=== PATIENT | female | born 1940 | race Caucasian/White ===

== ENCOUNTER → 2017-02-26 | Outpatient (CLI) | payer OTHER ==
[~2017-02-26] MED LIST: ASPI81TA28 PO; ATOR-24 PO; CHOL1000 PO; CLOP1TAB15 PO; CZR50 PO; ERGO500037 PO; HYDR-5688 PO; INSU1INJ33 SQ; LEVO150T9 PO; MAGN400T6 PO; METFTAB PO; METO-217 PO; NLV/20 PO; NVLGI/PEN SQ; OMEG10007 PO; POLY335019 PO; PRLSR20 PO; VENL75CA73 PO
--- NOTE | 2017-02-27 09:07 | MAMMOGRAPHY REPORT ---
BILATERAL DIGITAL SCREENING MAMMOGRAM TOMOSYNTHESIS WITH CAD: 02/26/2017 CLINICAL HISTORY: Asymptomatic. Personal history of breast cancer. TECHNIQUE: Breast tomosynthesis in addition to standard 2D mammography was performed. Current study was also evaluated with a Computer Aided Detection (CAD) system. COMPARISON: Comparison is made to exams dated: 02/26/2016 mammogram, 01/25/2015 mammogram, 07/18/2014 mammogram, 01/12/2014 mammogram, 07/13/2013 mammogram, and 01/14/2013 ultrasound - [facility] enter. BREAST COMPOSITION: There are scattered areas of fibroglandular density in both breasts. FINDINGS: No suspicious masses, calcifications, or areas of architectural distortion are noted in ei ther breast. There has been no significant interval change compared to prior exams. There are stable postsurgical changes in the left breast from prior lumpectomy. A linear scar marker denotes a scar on the left anterior breast. Bilateral benign-appearing calcifications are not significantly changed . IMPRESSION: ACR BI-RADS CATEGORY 2: BENIGN There is no mammographic evidence of malignancy. A 1 year screening mammogram is recommended. The pa tient will receive written notification of the results. Approximately 10% of breast cancers are not detected with mammography. A negative mammographic report should not delay biopsy if a clinically suggestive mass is present. Irma Jones M.D. /:02/26/2017 16:16:44 Faith Healer: Vesta DARDEN)([place]), [facility] letter sent: Normal 1/2 BI-RADS Code: ACR BI-RADS Category 2: Benign
== END | disposition home or self-care (01) ==
LOC: C.MAMM 09:45
PROVIDERS: ATTEND Surgery
DX: Z12.31 Encounter for screening mammogram for malignant neoplasm of breast (principal); Z85.3 Personal history of malignant neoplasm of breast; Z08 Encounter for follow-up examination after completed treatment for malignant neoplasm

== ENCOUNTER 2022-02-20 14:35 | Observation (INO) ==
[2022-02-20 15:44] LABS: Hematocrit (blood only) 29.9 % (37-47); Hemoglobin 9.4 g/dL (12.0-16.0); Mean Corpuscular Hemoglobin 25.9 pg (25-34); Mean Corpuscular Hgb Conc 31.4 g/dL (32-36); Mean Corpuscular Volume 82.4 fL (80-100); Mean Platelet Volume 9.2 fL (7.4-10.4); Platelet Count 245 K/uL (130-400); RDW Coefficient of Variation 15.2 % (11.5-14.5); RDW Standard Deviation 45.8 fL (36.4-46.3); Red Blood Count 3.63 M/uL (4.2-5.4); White Blood Count 8.92 K/uL (4.8-10.8)
[2022-02-20] MEDS ORDERED: CEFEPIME 2,000 MG/20 ML VIAL IV STA (16:01)
[2022-02-20] MEDS ORDERED: SODIUM CHLORIDE 0.9% 1000ML 1,000 ML IV ONE (16:01)
--- NOTE | 2022-02-20 16:04 | Emergency Department Note ---
Impression & Plan Abdominal pain, Urinary tract infection, Anemia ED Provider Note NAME: VIBHA CEDENO AGE: 81 SEX: F : 1940 ARRIVES VIA: Walk-In INFORMANT: Patient ED PROVIDER(S): Antony Dickinson DO CHIEF COMPLAINT: fever HPI: Patient is a 81-year-old female who presents the ER for dysuria and urgency which has been present since about the 12th of this month. She gave a urine sample and the culture grew out gram-negative non-Lactose fermenting bacteria. It is fairly resistant per the daughter who works in [employer] at [employer] [facility] [employer] where it is running. Sensitivities are not quite resulted as they had to be rerun due to resistance. Patient denies any headache or change in vision. No chest pain or shortness of breath. No nausea, vomiting, or diarrhea. No other exacerbating or remitting factors. Admits to chronic back pain which has been unchanged. She does also admit to lower suprapubic abdominal pain. ROS: See above HPI for pertinent positives & negatives. A total of 10 systems reviewed and were otherwise negative. PAST MEDICAL HISTORY:See Below PAST SURGICAL HISTORY:See Below FAMILY HISTORY:See Below SOCIAL HISTORY:See Below HOME MEDICATIONS:See Below ALLERGIES:See Below VITALS:See Below PHYSICAL EXAMINATION: GENERAL: Sitting up in bed, alert, well appearing, well nourished, no distress, non-toxic EYE EXAM: normal conjunctiva. OROPHARYNX: no exudate, no erythema, lips, buccal mucosa, and tongue normal and mucous membranes are moist NECK: supple, no nuchal rigidity, no adenopathy, non-tender LUNGS: Clear to auscultation. Normal chest wall mechanics HEART: no murmurs, S1 normal and S2 normal ABDOMEN: abdomen soft, non-tender, normo-active bowel sounds, no masses, no rebound or guarding. UPPER EXTREMITIES: upper extremities are grossly normal. LOWER EXTREMITIES: No pitting edema. NEURO EXAM: Normal sensorium, cranial nerves II-XII grossly intact, normal speech, no gross weakness of arms, no gross weakness of legs. MEDICAL DECISION MAKING: Patient is a 81-year-old female who presents ER for above-stated complaint. IV was established blood was obtained. Labs show no significant leukocytosis. Mild anemia at 9.4. BMP with mild hyponatremia 132. LFTs bilirubin was unremarkable. Patient was initially given IV cefepime and IV fluids. Protocol orders were placed as described previously in volume. I did add on blood cultures and lactates which resulted later. I ordered her cefepime and IV fluids. Requested medicine I ordered her meropenem later although cultures would support cefepime at this time. Patient and family were updated at bedside. She was admitted to the hospitalist for further work-up. She was not febrile or tachycardic while in the ER. There was no leukocytosis. Triage Nursing notes reviewed. Limited review of prior medical records performed Vital Signs: reviewed and remarkable for HTN and tachy Differential diagnosis: Differential diagnoses includes but is not limited to gastritis, peptic ulcer disease, GERD, gallbladder disease, pancreatitis, small bowel obstruction, acute coronary syndrome, pericarditis, ischemic bowel, irritable bowel disease, irritable bowel syndrome, appendicitis, diverticulitis, malignancy, hernia, urinary tract infection, torsion, [/ectopic (if female)], per foration, trauma, infectious. ER treatment provided: See below Diagnostics interpreted by me: Cardiac Monitoring: An order was placed for continuous cardiac monitoring. The monitor shows a rate of 88 with sinus rhythm. Laboratory studies: As stated above and show below. Imaging studies: CT abdomen pelvis is unremarkable exception of inflammation around the bladder Consultation(s): The hospitalist for further evaluation Procedures: none Critical Care: None Past Med/Surg History Medical History (Updated 02/20/22 @ 19:14 by Antony Dickinson DO) Anemia Arrhythmia states my heart skip a beat ocassionally Chronic back pain Diabetes mellitus, type 2 GERD (gastroesophageal reflux disease) Hiatal hernia Hx of breast cancer 2012 34 session of radiation Hyperlipidemia Hypertension Hypothyroidism Osteoarthritis Pancreatic cyst monitoring Surgical History History of cardiac cath ~2016/2017 History of carpal tunnel release right History of cataract surgery right and left History of colonoscopy History of ERCP History of esophagogastroduodenoscopy (EGD) History of heart artery stent one stent 2016 or 2018 - [facility] Carmen follows with dr Cee in [place] History of open reduction and internal fixation (ORIF) procedure right leg ORIF History of total hysterectomy with bilateral salpingo-oophorectomy (BSO) Hx laparoscopic cholecystectomy Hx of arthroscopy of shoulder left Hx of hernia repair umbilical S/P epidural steroid injection Family History Mother Diabetes mellitus, type 2 Social History Smoking Status: Never smoker Second Hand Exposure: No; Hx Alcohol Use: No Hx Substance Use: No Preferred Language: Botswanan Communication Ability: Effective It Integration Architect Required: No Beliefs That Will Affect Care: None Current Living Situation: Spouse Feels Safe at Home: Yes Assistive Devices: Denture - Upper and Denture - Lower Allergies Allergies Allergy/AdvReac Type Severity Reaction Status Date / Time morphine AdvReac Severe MIGRAINES Verified 02/20/22 19:00 Home Meds Home Medications Medication Instructions Recorded Confirmed aspirin 81 mg chewable tablet 81 mg PO HS 10/05/18 02/20/22 atorvastatin 40 mg tablet (Lipitor) 40 mg PO 10/05/18 02/20/22 calcium phosphate 250 mg-vit D3 1 tab PO M 10/05/18 02/20/22 12.5 mcg (500 unit) chewable tablet (Citracal-D3 Gummies) cholecalciferol (vitamin D3) 25 1,000 unit PO M 10/05/18 02/20/22 mcg (1,000 unit) capsule (Vitamin D3) insulin detemir U-100 100 unit/mL 40 unit SUBCUT HS 10/05/18 02/20/22 (3 mL) subcutaneous pen (Levemir FlexTouch U-100 Insulin) levothyroxine 112 mcg capsule 112 mcg PO M 10/05/18 02/20/22 magnesium chloride 71.5 mg 71.5 mg PO [facility] 10/05/18 02/20/22 (magnesium chloride) tablet,delayed release (Slow-Mag) metformin 500 mg tablet,extended 1,000 mg PO BID 10/05/18 02/20/22 release 24 hr metoprolol succinate 50 mg 50 mg PO BID 10/05/18 02/20/22 tablet,extended release 24 hr omeprazole 20 mg tablet,delayed 20 mg PO HS 10/05/18 02/20/22 release tamoxifen 20 mg tablet 20 mg PO QPM 10/05/18 02/20/22 lisinopril 10 mg tablet 10 mg PO HS 05/02/20 02/20/22 sulfamethoxazole 800 1 tab PO BID 02/20/22 02/20/22 mg-trimethoprim 160 mg tablet Results & Data (ED) Vital Signs Vital Signs - 24 hr 02/20/22 14:38 02/20/22 16:00 02/20/22 18:06 Temperature 37.0 C 37.4 C Temperature Source Temporal Artery Scan Oral Pulse Rate 96 H Pulse Rate [Apical] 85 Respiratory Rate 17 18 Respiratory Effort / Characteristics Non-Labored Non-Labored Spontaneous Respiratory Depth Normal Respiratory Pattern Regular Blood Pressure 152/71 H Blood Pressure [Right Arm] 128/68 Blood Pressure Mean 98 Blood Pressure Mean [Right Arm] 88 Blood Pressure Position [Right Arm] Lying Pulse Oximetry 95 94 Oxygen Delivery Method Room Air Room Air Sepsis Recent Fever Within 48 Hours No Sepsis New/Unexplained Change in Mental Status N/A Sepsis Action Taken by Nursing No Action Required Laboratory Data Result diagrams: 02/20/22 15:20 02/20/22 15:20 Lab Results 02/20/22 02/20/22 02/20/22 Range/Units 15:20 15:20 15:55 WBC 8.92 (4.8-10.8) K/uL RBC 3.63 L (4.2-5.4) M/uL Hgb 9.4 L (12.0-16.0) g/dL Hct 29.9 L (37-47) % MCV 82.4 (80-100) fL MCH 25.9 (25-34) pg MCHC 31.4 L (32-36) g/dL RDW Std Deviation 45.8 (36.4-46.3) fL RDW Coeff of Lori 15.2 H (11.5-14.5) % Plt Count 245 (130-400) K/uL MPV 9.2 (7.4-10.4) fL Immature Gran % (Auto) 0.2 % Neut % (Auto) 84.8 % Lymph % (Auto) 9.1 % [place] % (Auto) 4.7 % Eos % (Auto) 0.9 % Baso % (Auto) 0.3 % Neut # (Auto) 7.56 H (1.4-6.5) K/uL Lymph # (Auto) 0.81 L (1.2-3.4) K/uL [place] # (Auto) 0.42 (0.11-0.59) K/uL Eos # (Auto) 0.08 (0-0.5) K/uL Baso # (Auto) 0.03 (0-0.2) K/uL Immature Gran # (Auto) 0.02 (0.00-0.02) K/uL Hypochromasia Present Sodium 132 L (136-145) mmol/L Potassium 3.8 (3.5-5.1) mmol/L Chloride 99 (98-107) mmol/L Carbon Dioxide 21 (21-32) mmol/L Anion Gap 12 H (3-11) BUN 14 (6-23) mg/dl Creatinine 0.94 (0.6-1.2) mg/dl Est Cr Clr Drug Dosing 49.1 ml/min Est GFR ( Amer) 66.9 ml/min Est GFR (Non-Af Amer) 57.7 ml/min BUN/Creatinine Ratio 14.9 (10-20) Glucose 138 H (70-99(Fasting)) mg/dl Lactate (0.4-2.0) mmol/L Calcium 8.7 (8.5-10.1) mg/dl Total Bilirubin 0.8 (0.2-1.0) mg/dl AST 29 (13-39) U/L ALT 11 (7-52) U/L Alkaline Phosphatase 57 (34-104) U/L Total Protein 7.3 (6.0-8.3) gm/dl Albumin 3.8 (3.4-5.0) gm/dl Globulin 3.5 (2.5-4.0) gm/dl Albumin/Globulin Ratio 1.1 (0.9-2) Urine Color Dark Yellow Urine Appearance Cloudy A (Clear) Urine pH 5.5 (4.5-7.5) Ur Specific [place] 1.023 (1.000-1.030) Urine Protein 1+ H (Negative) Urine Glucose (UA) Negative (Negative) Urine Ketones Trace H (Negative) Urine Blood 2+ H (Negative) Urine Nitrite Positive A (Negative) Urine Bilirubin Negative (Negative) Urine Urobilinogen Negative (Negative) Ur Leukocyte Esterase 3+ H (Negative) Urine WBC (Auto) >30 H (0-5) /hpf Urine RBC (Auto) 5-10 H (0-4) /hpf U Hyaline Cast (Auto) 1-5 (0-5) /lpf U Epithel Cells (Auto) 10-20 H (0-5) /lpf Urine Bacteria (Auto) 4+ H (Negative) SARS-CoV-2, RNA, NAAT (NEGATIVE) 02/20/22 02/20/22 Range/Units 16:09 16:24 WBC (4.8-10.8) K/uL RBC (4.2-5.4) M/uL Hgb (12.0-16.0) g/dL Hct (37-47) % MCV (80-100) fL MCH (25-34) pg MCHC (32-36) g/dL RDW Std Deviation (36.4-46.3) fL RDW Coeff of Lori (11.5-14.5) % Plt Count (130-400) K/uL MPV (7.4-10.4) fL Immature Gran % (Auto) % Neut % (Auto) % Lymph % (Auto) % [place] % (Auto) % Eos % (Auto) % Baso % (Auto) % Neut # (Auto) (1.4-6.5) K/uL Lymph # (Auto) (1.2-3.4) K/uL [place] # (Auto) (0.11-0.59) K/uL Eos # (Auto) (0-0.5) K/uL Baso # (Auto) (0-0.2) K/uL Immature Gran # (Auto) (0.00-0.02) K/uL Hypochromasia Sodium (136-145) mmol/L Potassium (3.5-5.1) mmol/L Chloride (98-107) mmol/L Carbon Dioxide (21-32) mmol/L Anion Gap (3-11) BUN (6-23) mg/dl Creatinine (0.6-1.2) mg/dl Est Cr Clr Drug Dosing ml/min Est GFR ( Amer) ml/min Est GFR (Non-Af Amer) ml/min BUN/Creatinine Ratio (10-20) Glucose (70-99(Fasting)) mg/dl Lactate 3.7 H* (0.4-2.0) mmol/L Calcium (8.5-10.1) mg/dl Total Bilirubin (0.2-1.0) mg/dl AST (13-39) U/L ALT (7-52) U/L Alkaline Phosphatase (34-104) U/L Total Protein (6.0-8.3) gm/dl Albumin (3.4-5.0) gm/dl Globulin (2.5-4.0) gm/dl Albumin/Globulin Ratio (0.9-2) Urine Color Urine Appearance (Clear) Urine pH (4.5-7.5) Ur Specific [place] (1.000-1.030) Urine Protein (Negative) Urine Glucose (UA) (Negative) Urine Ketones (Negative) Urine Blood (Negative) Urine Nitrite (Negative) Urine Bilirubin (Negative) Urine Urobilinogen (Negative) Ur Leukocyte Esterase (Negative) Urine WBC (Auto) (0-5) /hpf Urine RBC (Auto) (0-4) /hpf U Hyaline Cast (Auto) (0-5) /lpf U Epithel Cells (Auto) (0-5) /lpf Urine Bacteria (Auto) (Negative) SARS-CoV-2, RNA, NAAT NEGATIVE (NEGATIVE) Administered Medications Discontinued Medications Sodium Chloride (Nss 1000ml) 1,000 mls @ 999 mls/hr IV .Q1H1M ONE Stop: 02/20/22 17:01 Last Infusion: 02/20/22 17:44 Dose: 0 mls/hr Documented by: [id number] Admin: 02/20/22 16:42 Dose: 999 mls/hr Documented by: [id number] Cefepime HCl (Maxipime) 2,000 mg in 20 mls @ 5 mls/min IV NOW STA; Protocol Stop: 02/20/22 16:04 Last Admin: 02/20/22 16:42 Dose: 5 mls/min Documented by: [id number] Meropenem 500 mg/ Syringe 10 mls @ 2 mls/min IV Q8H [facility]; Protocol Stop: 02/22/22 17:44 Last Admin: 02/20/22 18:26 Dose: Not Given Documented by: [id number] Phenazopyridine HCl (Phenazopyridine Hcl 200 Mg Tab) 200 mg PO NOW STA Stop: 02/20/22 18:31 Last Admin: 02/20/22 18:46 Dose: 200 mg Documented by: [id number] Imaging Data Radiologist's Impression: Abdomen/Pelvis CT 02/20/22 16:02 CT SCAN OF THE ABDOMEN AND PELVIS WITHOUT IV CONTRAST CLINICAL HISTORY: Generalized abdominal pain. Sepsis. COMPARISON STUDY: No priors. TECHNIQUE: CT scan of the abdomen and pelvis is performed from the lung bases to the proximal femora. Images are reviewed in the axial, sagittal, and coronal planes. IV contrast was not administered for this examination. Note that the examination is suboptimal without oral and IV contrast. There is streak artifact from metallic spinal hardware. A dose lowering technique was utilized adhering to the principles of ALARA. CT DOSE: 391.53 mGy.cm FINDINGS: Lung bases: The heart is top normal in size and without pericardial effusion. The coronary arteries and mitral annulus are densely calcified. There is diminished attenuation of the cardiac blood pool as compared to the myocardium suggesting anemia. There is a small hiatal hernia. The lung bases are clear noting bibasilar scarring/atelectasis. Liver: The unenhanced liver is cirrhotic in morphology and heterogeneous in attenuation. There is nodularity of the hepatic surface contour and hypertrophy of the left lobe. There is no intrahepatic biliary ductal dilatation. Gallbladder: Surgically absent noting clips in the gallbladder fossa. Spleen: Normal in size and attenuation. Pancreas: The unenhanced pancreas is moderately atrophic and grossly unremarkable. Adrenal glands: Unremarkable. Kidneys: The unenhanced kidneys are atrophic and without hydronephrosis. There are no renal calculi identified. There is no evidence of contour deforming renal mass lesion. Abdominal vasculature: The abdominal aorta is normal in course and caliber noting moderate atherosclerotic calcification. Bowel: There is moderate sigmoid diverticulosis without CT evidence of acute diverticulitis. No bowel obstruction is identified. The appendix is not visualized. Duodenal diverticula are noted. Peritoneum: There is trace perihepatic ascites. No intraperitoneal free air is seen. There is evidence of previous ventral hernia repair. Lymphadenopathy: None. Pelvic viscera: The bladder wall is circumferentially thickened and there is pericystic inflammation. The uterus is surgically absent. No adnexal lesion is seen. Skeletal structures: The skeletal structures are osteopenic. There is postoperative and spondylotic change noted in the lumbar spine. No lytic or bl astic lesions are seen. IMPRESSION: 1. Findings are typical for cystitis. Correlate with clinical findings and urinalysis. 2. Cirrhotic liver morphology and trace perihepatic ascites. 3. Sigmoid diverticulosis without CT evidence of acute diverticulitis. 4. Additional findings as above. ACT 112: Negative or not required by law. Electronically signed by: Cody Garcia M.D. 02/20/2022 4:41 PM Discharge Plan Visit Data Chief Complaint: Urinary Symptoms Stated Complaint: UTI, DR REF OVER ED Provider: Antony Dickinson Discharge Problem: Abdominal pain, Urinary tract infection, Anemia Forms Stand Alone Forms: [facility] [employer] Prescriptions Prescriptions: No Action lisinopril 10 mg Tablet 10 mg PO HS RF: 0 atorvastatin [Lipitor] 40 mg Tablet 40 mg PO HS RF: 0 metoprolol succinate 50 mg Tablet Extended Release 24 Hr 50 mg PO BID RF: 0 aspirin 81 mg Tablet,Chewable 81 mg PO HS RF: 0 metformin 500 mg Tablet Extended Release 24 Hr 1,000 mg PO BID RF: 0 tamoxifen 20 mg Tablet 20 mg PO QPM RF: 0 cholecalciferol (vitamin D3) [Vitamin D3] 1,000 unit Capsule 1,000 unit PO QAM RF: 0 Levemir FlexTouch U-100 Insuln 100 unit/mL (3 mL) Insulin Pen 40 unit SUBCUT HS RF: 0 omeprazole 20 mg Tablet,Delayed Release (Dr/Ec) 20 mg PO HS RF: 0 levothyroxine 112 mcg Capsule 112 mcg PO QAM RF: 0 Slow-Mag 71.5 mg Tablet,Delayed Release (Dr/Ec) 71.5 mg PO QAM RF: 0 calcium phosphate-vitamin D3 [Citracal-D3 Gummies] 250 mg calcium- 500 unit Tablet,Chewable 1 tab PO QAM RF: 0 sulfamethoxazole-trimethoprim 800-160 mg tablet 1 tab PO BID RF: 0 Referrals Referrals: Jenna Murray CRNP [Primary Care Provider] -
[2022-02-20 16:05] LABS: Basophils # (auto) 0.03 K/uL (0-0.2); Basophils % (auto) 0.3 %; Eosinophils # (auto) 0.08 K/uL (0-0.5); Eosinophils % (auto) 0.9 %; Hypochromasia Present; Immature Granulocytes # (auto) 0.02 K/uL (0.00-0.02); Immature Granulocytes % (auto) 0.2 %; Lymphocytes # (auto) 0.81 K/uL (1.2-3.4); Lymphocytes % (auto) 9.1 %; Monocytes # (auto) 0.42 K/uL (0.11-0.59); Monocytes % (auto) 4.7 %; Neutrophils # (auto) 7.56 K/uL (1.4-6.5); Neutrophils % (auto) 84.8 %
[2022-02-20 16:13] LABS: Appearance Urine Cloudy (Clear); Bacteria Urine Automated 4+ (Negative); Bilirubin Urine Negative (Negative); Blood Urine 2+ (Negative); Color Urine Dark Yellow; Glucose Urine UA Negative (Negative); Ketones Urine Trace (Negative); Leukocyte Esterase Urine 3+ (Negative); Nitrite Urine Positive (Negative); Protein Urine 1+ (Negative); Specific Gravity Urine 1.023 (1.000-1.030); Urobilinogen Urine Negative (Negative); WBC Urine Automated >30 /hpf (0-5); pH Urine 5.5 (4.5-7.5)
[2022-02-20 16:13] LABS: Albumin Globulin Ratio 1.1 (0.9-2); Albumin Level 3.8 gm/dl (3.4-5.0); BUN Creatinine Ratio 14.9 (10-20); Bilirubin,Total 0.8 mg/dl (0.2-1.0); Calcium 8.7 mg/dl (8.5-10.1); Creatinine Clr Calc Pharmacy 49.1 ml/min; Est GFR (African American) 66.9 ml/min; Est GFR (Non-African American) 57.7 ml/min; Globulin 3.5 gm/dl (2.5-4.0); Potassium 3.8 mmol/L (3.5-5.1); Total Protein 7.3 gm/dl (6.0-8.3)
--- NOTE | 2022-02-20 16:43 | CT Scan Report ---
CT SCAN OF THE ABDOMEN AND PELVIS WITHOUT IV CONTRAST CLINICAL HISTORY: Generalized abdominal pain. Sepsis. COMPARISON STUDY: No priors. TECHNIQUE: CT scan of the abdomen and pelvis is performed from the lung bases to the proximal femora. Images are reviewed in the axial, sagittal, and coronal planes. IV contrast was not administered for this examination. Note that the examination is suboptimal without oral and IV contrast. There is str eak artifact from metallic spinal hardware. A dose lowering technique was utilized adhering to the pr inciples of ALA. CT DOSE: 391.53 mGy.cm FINDINGS: Lung bases: The heart is top normal in size and without pericardial effusion. The coronary arteries a nd mitral annulus are densely calcified. There is diminished attenuation of the cardiac blood pool as compared to the myocardium suggesting anemia. There is a small hiatal hernia. The lung bases are harsha ar noting bibasilar scarring/atelectasis. Liver: The unenhanced liver is cirrhotic in morphology and heterogeneous in attenuation. There is nod ularity of the hepatic surface contour and hypertrophy of the left lobe. There is no intrahepatic delisa iary ductal dilatation. Gallbladder: Surgically absent noting clips in the gallbladder fossa. Spleen: Normal in size and attenuation. Pancreas: The unenhanced pancreas is moderately atrophic and grossly unremarkable. Adrenal glands: Unremarkable. Kidneys: The unenhanced kidneys are atrophic and without hydronephrosis. There are no renal calculi i dentified. There is no evidence of contour deforming renal mass lesion. Abdominal vasculature: The abdominal aorta is normal in course and caliber noting moderate atheroscle rotic calcification. Bowel: There is moderate sigmoid diverticulosis without CT evidence of acute diverticulitis. No bowel obstruction is identified. The appendix is not visualized. Duodenal diverticula are noted. Peritoneum: There is trace perihepatic ascites. No intraperitoneal free air is seen. There is evidenc e of previous ventral hernia repair. Lymphadenopathy: None. Pelvic viscera: The bladder wall is circumferentially thickened and there is pericystic inflammation. The uterus is surgically absent. No adnexal lesion is seen. Skeletal structures: The skeletal structures are osteopenic. There is postoperative and spondylotic c hange noted in the lumbar spine. No lytic or blastic lesions are seen. IMPRESSION: 1. Findings are typical for cystitis. Correlate with clinical findings and urinalysis. 2. Cirrhotic liver morphology and trace perihepatic ascites. 3. Sigmoid diverticulosis without CT evidence of acute diverticulitis. 4. Additional findings as above. ACT 112: Negative or not required by law. Electronically signed by: Cody Garcia M.D. 02/20/2022 4:41 PM
[2022-02-20] MEDS ORDERED: MEROPENEM 500 MG in SYRINGE 0 ML IV SCH (17:45)
--- NOTE | 2022-02-20 18:27 | History & Physical Report ---
Date of Service February 20, 2022 Assessment & Plan (1) Recurrent UTI: Plan: Prior UTIs Klebsiella oxytoca resistant to ampicillin, Adrianna glabrata susceptible to Voriconazole, Klebsiella pneumoniae resistant to ampicillin, pansensitive E. coli x2, Enterobacter aerogenes resistant to cefazolin and ampicillin (intermediate resistant to nitrofurantoin). During this time she has also had two sets of negative blood culture (5 days) Given significant dysuria and reportedly same in [facility] growing Klebsiella with "lots of resistance" and increased lactate will observe overnight and continue patient on Cefepime 2g IV q8h Pyridium for dysuria. Increased risk of UTIs with tamoxifen therefore will place this on hold, also increased risk with her diabetes (not on SGLT2 inhibitor) Follow up urine culture previously taken at [facility] - results likely to be back tomorrow Follow up urine and blood cultures here. (2) Hypothyroidism: Plan: TSH with AM labs Continue levothyroxine 112 mcg PO QAM (3) Diabetes mellitus, type 2: Plan: Hemoglobin A1C unknown, will get with AM labs Switch Levemir 40 units QPM with Lantus 20 units BID Not usually on sliding scale insulin but while hospitalized and not on metformin will use Novolog: Goal BSG Range: Low 110 mg/dL, High 140 mg/dL Correction Factor: 45 mg/dL/unit Carbohydrate ratio = 15 g/unit BSGs ACHS if eating, q6h if npo (4) GERD (gastroesophageal reflux disease): Plan: Switch omeprazole for pantoprazole per hospital formulary (5) Hx of breast cancer: Plan: Tamoxifen on hold as above. (6) Hyperlipidemia: Plan: Continue atorvastatin (7) Hypertension: Plan: Continue metoprolol tartrate Hold lisinopril due to low normal BP (8) Coronary artery disease: Plan: History of cardiac stent 2017 or 2018 - [facility] Follows with dr Cee in [place] Continue ASA, metoprolol, atorvastatin (holding lisinopril as above) (9) Liver cirrhosis: Plan: Notes history of this without need for paracentesis (10) Anemia: Plan: Longstanding. Repeat CBC in am to check for stability. Plan: VTE Prophylaxis - deferred on admission as likely can go home tomorrow Diet - T2DM Disposition - observation status to med/surg Admission and Anticipated Discharge Date Admission Date: February 20, 2022 History of Present Illness Chief Complaint: Dysuria Primary Care Provider: YOANDY Ramos Kaelyn Aguila is a 81 year old female who presents to the ER on advice of her urologist due to dysuria. She has a significant history of recurrent UTIs for which she was establishing care with urology today. She usually has her care in [facility] and all her previous cultures are in the lab there (summarized in A/P). Due to significant dysuria she was referred to the ER today by urology for CT to assess for anatomical reason for UTIs and possible need for IV antibiotics. The patient reports ongoing dysuria and generalized weakness on this occasion for the last 2 weeks but much worse the last 2 days. For the last year she has had a lot of dysuria but she think it does resolve after treatment for UTIs but not for a long period. She has been hospitalized for possible UTI sepsis within the last year however blood culture have always been negative. No fever or chills. She is having left flank pain. In the ER urine and blood culture were taken, WBC 8.92. She was given cefepime 2g IV q8h. Given urology note questioning to use meropenem this was initially ordered but on receiving faxes from [facility] I see no significant resistance in the past warranting this therefore it was discontinued prior to being given. She was referred to medicine for admission and ongoing management of UTI with tachycardia and concern for multi-drug resistance. Allergies Allergy/AdvReac Type Severity Reaction Status Date / Time morphine AdvReac Severe MIGRAINES Verified 02/20/22 19:00 Home Medications Medication Instructions Recorded Confirmed Type aspirin 81 mg chewable tablet 81 mg PO HS 10/05/18 02/20/22 History atorvastatin 40 mg tablet (Lipitor) 40 mg PO HS 10/05/18 02/20/22 History calcium phosphate 250 mg-vit D3 1 tab PO QAM 10/05/18 02/20/22 History 12.5 mcg (500 unit) chewable tablet (Citracal-D3 Gummies) cholecalciferol (vitamin D3) 25 1,000 unit PO QAM 10/05/18 02/20/22 History mcg (1,000 unit) capsule (Vitamin D3) insulin detemir U-100 100 unit/mL 40 unit SUBCUT 10/05/18 02/20/22 History (3 mL) subcutaneous pen (Levemir FlexTouch U-100 Insulin) levothyroxine 112 mcg capsule 112 mcg PO QAM 10/05/18 02/20/22 History magnesium chloride 71.5 mg 71.5 mg PO QAM 10/05/18 02/20/22 History (magnesium chloride) tablet,delayed release (Slow-Mag) metformin 500 mg tablet,extended 1,000 mg PO BID 10/05/18 02/20/22 History release 24 hr metoprolol succinate 50 mg 50 mg PO BID 10/05/18 02/20/22 History tablet,extended release 24 hr omeprazole 20 mg tablet,delayed 20 mg PO HS 10/05/18 02/20/22 History release tamoxifen 20 mg tablet 20 mg PO QPM 10/05/18 02/20/22 History lisinopril 10 mg tablet 10 mg PO HS 05/02/20 02/20/22 History sulfamethoxazole 800 1 tab PO BID 02/20/22 02/20/22 History mg-trimethoprim 160 mg tablet Past Med/Surg History Medical History (Updated 02/21/22 @ 07:11 by Gomez Costa MD) Anemia Arrhythmia states my heart skip a beat ocassionally Chronic back pain Diabetes mellitus, type 2 GERD (gastroesophageal reflux disease) Hiatal hernia Hx of breast cancer 2012 34 session of radiation Hyperlipidemia Hypertension Hypothyroidism Osteoarthritis Pancreatic cyst monitoring Surgical History History of cardiac cath ~ History of carpal tunnel release right History of cataract surgery right and left History of colonoscopy History of ERCP History of esophagogastroduodenoscopy (EGD) History of heart artery stent one stent 2016 or 2018 - [facility] follows with dr Cee in [place] History of open reduction and internal fixation (ORIF) procedure right leg ORIF History of total hysterectomy with bilateral salpingo-oophorectomy (BSO) Hx laparoscopic cholecystectomy Hx of arthroscopy of shoulder left Hx of hernia repair umbilical S/P epidural steroid injection Family History Mother Diabetes mellitus, type 2 Social History Smoking Status: Never smoker Second Hand Exposure: No; Do You Dip or Chew Tobacco: No; Tobacco Cessation Education Requested by Patient: No Hx Alcohol Use: No Hx Substance Use: No Preferred Language: Albanian Communication Ability: Effective Trailer Sections As[employer]er Required: No Beliefs That Will Affect Care: None Current Living Situation: Spouse Feels Safe at Home: Yes Safety Concerns: Feels Safe At This Time Assistive Devices: Cane Review of Systems Review of Systems: All systems reviewed & are unremarkable except as noted in HPI & below Physical Exam Constitutional: WD/WN, vitals as above Neck: trachea midline, no thyromegaly Respiratory: normal respiratory effort, lungs clear to auscultation Cardiovascular: RRR, no murmur, no edema Gastrointestinal (Abdomen): normal bowel sounds, soft, nontender, no hepatosplenomegaly Musculoskeletal: no cyanosis or clubbing, extremities motor strength 5/5 Skin: no rashes, warm and dry Neurologic: moves all extremities and awake; no focal motor deficits and not confused Psychiatric: A+Ox3, euthymic affect Genitourinary: no CVA tenderness Results & Data Results & Data ([facility]) Vital Signs (Past 12 Hours) Vital Signs Temp Pulse Pulse Resp BP BP Pulse Ox 02/20/22 18:06 85 18 128/68 94 02/20/22 16:00 37.4 C 02/20/22 14:38 37.0 C 96 H 17 152/71 H 95 Laboratory Results Abnormal lab results 02/20/22 02/20/22 02/20/22 Range/Units 15:20 15:20 15:55 RBC 3.63 L (4.2-5.4) M/uL Hgb 9.4 L (12.0-16.0) g/dL Hct 29.9 L (37-47) % MCHC 31.4 L (32-36) g/dL RDW Coeff of Lori 15.2 H (11.5-14.5) % Neut # (Auto) 7.56 H (1.4-6.5) K/uL Lymph # (Auto) 0.81 L (1.2-3.4) K/uL Sodium 132 L (136-145) mmol/L Anion Gap 12 H (3-11) Glucose 138 H (70-99(Fasting)) mg/dl POC Glucose (70-99) mg/dl Lactate (0.4-2.0) mmol/L Urine Appearance Cloudy A (Clear) Urine Protein 1+ H (Negative) Urine Ketones Trace H (Negative) Urine Blood 2+ H (Negative) Urine Nitrite Positive A (Negative) Ur Leukocyte Esterase 3+ H (Negative) Urine WBC (Auto) >30 H (0-5) /hpf Urine RBC (Auto) 5-10 H (0-4) /hpf U Epithel Cells (Auto) 10-20 H (0-5) /lpf Urine Bacteria (Auto) 4+ H (Negative) 02/20/22 02/20/22 02/21/22 Range/Units 16:24 18:26 02:11 RBC (4.2-5.4) M/uL Hgb (12.0-16.0) g/dL Hct (37-47) % MCHC (32-36) g/dL RDW Coeff of Lori (11.5-14.5) % Neut # (Auto) (1.4-6.5) K/uL Lymph # (Auto) (1.2-3.4) K/uL Sodium (136-145) mmol/L Anion Gap (3-11) Glucose (70-99(Fasting)) mg/dl POC Glucose 114 H (70-99) mg/dl Lactate 3.7 H* 2.5 H* (0.4-2.0) mmol/L Urine Appearance (Clear) Urine Protein (Negative) Urine Ketones (Negative) Urine Blood (Negative) Urine Nitrite (Negative) Ur Leukocyte Esterase (Negative) Urine WBC (Auto) (0-5) /hpf Urine RBC (Auto) (0-4) /hpf U Epithel Cells (Auto) (0-5) /lpf Urine Bacteria (Auto) (Negative) Diagnostic Findings CT SCAN OF THE ABDOMEN AND PELVIS WITHOUT IV CONTRAST CLINICAL HISTORY: Generalized abdominal pain. Sepsis. COMPARISON STUDY: No priors. TECHNIQUE: CT scan of the abdomen and pelvis is performed from the lung bases to the proximal femora. Images are reviewed in the axial, sagittal, and coronal planes. IV contrast was not administered for this examination. Note that the examination is suboptimal without oral and IV contrast. There is streak artifact from metallic spinal hardware. A dose lowering technique was utilized adhering to the principles of ALARA. CT DOSE: 391.53 mGy.cm FINDINGS: Lung bases: The heart is top normal in size and without pericardial effusion. The coronary arteries and mitral annulus are densely calcified. There is diminished attenuation of the cardiac blood pool as compared to the myocardium suggesting anemia. There is a small hiatal hernia. The lung bases are clear noting bibasilar scarring/atelectasis. Liver: The unenhanced liver is cirrhotic in morphology and heterogeneous in attenuation. There is nodularity of the hepatic surface contour and hypertrophy of the left lobe. There is no intrahepatic biliary ductal dilatation. Gallbladder: Surgically absent noting clips in the gallbladder fossa. Spleen: Normal in size and attenuation. Pancreas: The unenhanced pancreas is moderately atrophic and grossly unremarkable. Adrenal glands: Unremarkable. Kidneys: The unenhanced kidneys are atrophic and without hydronephrosis. There are no renal calculi identified. There is no evidence of contour deforming renal mass lesion. Abdominal vasculature: The abdominal aorta is normal in course and caliber noting moderate atherosclerotic calcification. Bowel: There is moderate sigmoid diverticulosis without CT evidence of acute diverticulitis. No bowel obstruction is identified. The appendix is not visualized. Duodenal diverticula are noted. Peritoneum: There is trace perihepatic ascites. No intraperitoneal free air is seen. There is evidence of previous ventral hernia repair. Lymphadenopathy: None. Pelvic viscera: The bladder wall is circumferentially thickened and there is pericystic inflammation. The uterus is surgically absent. No adnexal lesion is seen. Skeletal structures: The skeletal structures are osteopenic. There is postopera tive and spondylotic change noted in the lumbar spine. No lytic or blastic lesions are seen. IMPRESSION: 1. Findings are typical for cystitis. Correlate with clinical findings and urinalysis. 2. Cirrhotic liver morphology and trace perihepatic ascites. 3. Sigmoid diverticulosis without CT evidence of acute diverticulitis. 4. Additional findings as above. Medications Administered ER Medications Given: NSS 1L bolus Cefepime 2g IV Code Status & VTE Plan Code Status Full VTE Prophylaxis Plan VTE Prophylaxis will be ordered: Yes PG Care Time/CCT Total # of Minutes Spent Total Time Spent: 75 Total Time Spent with Patient: Total time spent is greater than 50% in coordination of care (as documented) at patient's floor/unit and/or counseling patient: Coding Level of Care Code INT OBSERVATION CARE 70M LVL 3 Diagnoses Recurrent UTI N39.0 Hypothyroidism E03.9 Diabetes mellitus, type 2 E11.9 GERD (gastroesophageal reflux disease) K21.9 Hx of breast cancer Z85.3 Hyperlipidemia E78.5 Hypertension I10 Coronary artery disease I25.10 Liver cirrhosis K74.60 Anemia D64.9 Anemia type: unspecified type (1) Anemia Anemia type: unspecified type Qualified Code(s): D64.9 - Anemia, unspecified
[2022-02-20] MEDS ORDERED: PHENAZOPYRIDINE HCL 200 MG TAB PO STA (18:30)
[2022-02-20] MEDS ORDERED: SODIUM CHLORIDE 0.9% 500 ML IV ONE (19:13)
[2022-02-20] MEDS ORDERED: POLYETHYLENE (MIRALAX) 17 GM PACK PO PRN (21:35)
[2022-02-20] MEDS ORDERED: IBUPROFEN 200 MG TAB PO STA (22:29)
[2022-02-21] MEDS ORDERED: INSULIN DETEMIR FLEXPEN/FLEX TOUCH 100 UNITS/ML 3ML SQ SCH (01:30)
[2022-02-21] MEDS ORDERED: CARBOHYDRATES FOR HYPOGLYCEMIA PO PRN (01:33)
[2022-02-21] MEDS ORDERED: GLUCAGON FOR INJ 1 MG VIAL SQ PRN (01:33)
[2022-02-21] MEDS ORDERED: DEXTROSE 50% 50 ML SYRINGE IV PRN (01:33)
[2022-02-21] MEDS ORDERED: GLUCOSE 10 TABS/TUBE PO PRN (01:33)
[2022-02-21] MEDS ORDERED: GLUCOSE 40% GEL 15 GM TUBE PO PRN (01:33)
[2022-02-21] MEDS ORDERED: KETOROLAC TROMETHAMINE 15 MG/ML VIAL IV ONE (02:10)
[2022-02-21] MEDS: METOPROLOL SUCC 50MG EXT REL TAB PO SCH ×3 (02:59→21:13)
[2022-02-21] MEDS: INSULIN GLARGINE SOLOSTAR 100 UNITS/ML 3 ML PEN SC SCH ×3 (03:01→21:15)
[2022-02-21] MEDS: CEFEPIME 2,000 MG in SYRINGE 0 ML IV SCH ×2 (03:02→16:12)
[2022-02-21] MEDS ORDERED: LEVOTHYROXINE SODIUM 112 MCG TABLET PO SCH (06:30)
[2022-02-21] MEDS: ACETAMINOPHEN 325 MG TAB PO PRN ×2 (07:35→22:16)
[2022-02-21] MEDS ORDERED: SODIUM CHLORIDE 0.9% 500 ML IV SCH (07:45)
--- NOTE | 2022-02-21 07:45 | Hospitalist Progress Note ---
Date of Service February 21, 2022 Assessment & Plan (1) Recurrent UTI: Plan: Prior UTIs Klebsiella oxytoca resistant to ampicillin, Adrianna glabrata susceptible to Voriconazole, Klebsiella pneumoniae resistant to ampicillin, pansensitive E. coli x2, Enterobacter aerogenes resistant to cefazolin and ampicillin (intermediate resistant to nitrofurantoin). Notes in prior HPI from [facility] with possible prolapse bladder During this time she has also had two sets of negative blood culture (5 days) Increased risk of UTIs with tamoxifen therefore will place this on hold, also increased risk with her diabetes (not on SGLT2 inhibitor) Significant dysuria reported (improved today but still present) Lactic 3.7 on admit, IVF provided. Repeat this morning wnl Continue cefepime 2gm IV Q8H for now Pyridium for dysuria, detrol x 1 and monitor response Zofran added prn nausea Urine cx gram negative bacilli -- monitor BCx pending, ngtd temp 37.7 last evening, WBC wnl CTAP done to evaluate structural abn -->no structural abnormalities 1. Findings are typical for cystitis. Correlate with clinical findings and urinalysis. 2. Cirrhotic liver morphology and trace perihepatic ascites. 3. Sigmoid diverticulosis without CT evidence of acute diverticulitis. 4. Additional findings as above. Follow up urine culture previously taken at [facility] - results likely to be back tomorrow however awaiting call back from institution, also asked [employer] man to contact to see if able to obtain quicker (not even able to reach actual person as moved their HIM to automated and will need to await HIM response back to us to review) Monitor (2) Hypothyroidism: Plan: TSH with AM labs -- elevated however patient admits to taking after eating in the morning Continue levothyroxine 112 mcg PO QAM and recommending taking appropriately at discharge and repeat labs with PCP in 4-6 weeks (3) Diabetes mellitus, type 2: Plan: Hemoglobin A1C unknown, A1c 6.3 on AM labs (patient thinks her prior A1c 6.3) Switch Levemir 40 units QPM with Lantus 20 units BID Not usually on sliding scale insulin but while hospitalized and not on metformin will use Novolog: Goal BSG Range: Low 110 mg/dL, High 140 mg/dL Correction Factor: 45 mg/dL/unit Carbohydrate ratio = 15 g/unit BSGs ACHS if eating, q6h if npo BSGs acceptable, monitor (4) GERD (gastroesophageal reflux disease): Plan: Switch omeprazole for pantoprazole per hospital formulary (5) Hx of breast cancer: Plan: hx L partial mastectomy 2013 and 34 rounds radiation and maintained on tamoxifen follows with her PCP -> rec f/u to discuss possibly continued on anastrazole given post-menopausal (6) Hyperlipidemia: Plan: Continue atorvastatin (7) Hypertension: Plan: Continue metoprolol tartrate Hold lisinopril due to low normal BP/poor PO intake mine captain BP 114/69, monitor (8) Coronary artery disease: Plan: History of cardiac stent 2017 or 2018 - Prieto Carmen Follows with dr Cee in [place] reported however patient reports he retired and she hasn't been followed by anyone yet but rec having 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 if only needed DAPT x 1 year following stent Remains on ASA, metoprolol, atorvastatin Lisinopril on hold for above (9) Liver cirrhosis: Plan: Notes history of this without need for paracentesis not on any spironolactone/lasix LFTs wnl on admission Check INR in AM (10) Anemia: Plan: Longstanding, takes 1 tablet daily at home hgb 8.1 on am labs, checked iron panel given borderline low MCV Iron 16, trans% 5 Venofer IV ordered No blood in stool reported reports c-scope ~ 3 yrs ago, next due in 2 years Denies use of NSAIDs Check B12 w/ am labs as well given balance/memory/neuropathy and on metformin CBC in AM (11) Hypomagnesemia: Plan: checked given SOB w/ ambulation/cramping and prior notes from Oct w/ admission for borderline sepsis at [facility] w/ fall and low magnesium had been placed on daily supplementation but checked Mag level Low 1.5 -- IV replacement ordered and monitor level in AM Plan: added SCDs for DVT prophylaxis avoiding chemoproph in anemia and encouraging ambulation for now -- if remains inpatient can add Admission and Anticipated Discharge Date Admission Date: February 20, 2022 Subjective patient evaluated this morning Pyridium for bladder spasm but feeling burning with urination awaiting cultures from [place] did note she felt covered in sweat last evening, low grade temp states having issues since spine issues in november with her bladder and recurrent infections followed [facility] but dr cee retired. stent after stress testing and placed on plavix but after last rx ran out she stopped taking this. she noted no symptoms with stress testing prior she has hx breast ca s/p partial L mastectomy 2012 and radiation, maintained on tamoxifen, does not follow oncology and managed by her pcp. unclear why not on anastrazole given age/premenopausal. keeps up with mammograms hgb low on admission, reports c-scope in the past 3 years. no blood in stool. denies NSAID use (prior use meloxicam after back surgery but nothing recently and takes hydrocodone-APAP). Will check iron studies -- she takes once/daily at home. Also on magnesium once daily at home and notes she does have history of low magnesium during prior hospitalizations at [facility]. Issues with fatigue/constipation/weight gain/brittle hair/dry skin, cold intolerance. TSH elevated however patient states she takes this after eating sometimes and no one ever told her this needed to be taken on an empty stomach. Will continue current dosing with instruction when to take and have PCP [facility] No n/v and improvement in appetite. Will change to full admit and monitor cultures. She does note having been tx w/ antifungal in past for 10 days with Diflucan. Review of Systems Review of Systems: All systems reviewed & are unremarkable except as noted in HPI & below Physical Exam Physical Exam: General: WD/WN female sitting up in hospital bed, NAD, general pallor HEENT: head atraumatic normocephalic, mm slightly dry, trachea midline without deviation Chest: s/p L partial mastectomy Resp: CTAB, diminished in the bases with associated crackles, no wheezing/rales, on room air CV: RRR, systolic murmur, no rub/gallop, no calf tenderness, trace pedal edema GI: +BS, soft, suprapubic tenderness : no fitzgerald MSK/Neuro: moves all extremities, no focal deficit, answering questions appropriately Skin: dry, cool Results & Data Results & Data ([facility]) Vital Signs (Past 12 Hours) Vital Signs Temp Pulse Pulse Resp BP Pulse Ox 02/21/22 02:58 36.8 C 58 L 91/50 L 02/21/22 00:22 37.4 C 85 18 128/68 93 02/20/22 21:00 37.7 C H 82 18 95/51 L 93 Laboratory Results 02/21/22 02/20/22 02/20/22 Range/Units 02:11 18:26 16:25 WBC (4.8-10.8) K/uL RBC (4.2-5.4) M/uL Hgb (12.0-16.0) g/dL Hct (37-47) % MCV (80-100) fL MCH (25-34) pg MCHC (32-36) g/dL RDW Std Deviation (36.4-46.3) fL RDW Coeff of Lori (11.5-14.5) % Plt Count (130-400) K/uL MPV (7.4-10.4) fL Immature Gran % (Auto) % Neut % (Auto) % Lymph % (Auto) % [place] % (Auto) % Eos % (Auto) % Baso % (Auto) % Neut # (Auto) (1.4-6.5) K/uL Lymph # (Auto) (1.2-3.4) K/uL [place] # (Auto) (0.11-0.59) K/uL Eos # (Auto) (0-0.5) K/uL Baso # (Auto) (0-0.2) K/uL Immature Gran # (Auto) (0.00-0.02) K/uL Hypochromasia Sodium (136-145) mmol/L Potassium (3.5-5.1) mmol/L Chloride (98-107) mmol/L Carbon Dioxide (21-32) mmol/L Anion Gap (3-11) BUN (6-23) mg/dl Creatinine (0.6-1.2) mg/dl Est Cr Clr Drug Dosing ml/min Est GFR ( Amer) ml/min Est GFR (Non-Af Amer) ml/min BUN/Creatinine Ratio (10-20) Glucose (70-99(Fasting)) mg/dl POC Glucose 114 H (70-99) mg/dl Lactate 2.5 H* (0.4-2.0) mmol/L Calcium (8.5-10.1) mg/dl Total Bilirubin (0.2-1.0) mg/dl AST (13-39) U/L ALT (7-52) U/L Alkaline Phosphatase (34-104) U/L Total Protein (6.0-8.3) gm/dl Albumin (3.4-5.0) gm/dl Globulin (2.5-4.0) gm/dl Albumin/Globulin Ratio (0.9-2) Procalcitonin 0.06 (0-0.5) ng/ml Urine Color Urine Appearance (Clear) Urine pH (4.5-7.5) Ur Specific [place] (1.000-1.030) Urine Protein (Negative) Urine Glucose (UA) (Negative) Urine Ketones (Negative) Urine Blood (Negative) Urine Nitrite (Negative) Urine Bilirubin (Negative) Urine Urobilinogen (Negative) Ur Leukocyte Esterase (Negative) Urine WBC (Auto) (0-5) /hpf Urine RBC (Auto) (0-4) /hpf U Hyaline Cast (Auto) (0-5) /lpf U Epithel Cells (Auto) (0-5) /lpf Urine Bacteria (Auto) (Negative) SARS-CoV-2, RNA, NAAT (NEGATIVE) 02/20/22 02/20/22 02/20/22 Range/Units 16:24 16:09 15:55 WBC (4.8-10.8) K/uL RBC (4.2-5.4) M/uL Hgb (12.0-16.0) g/dL Hct (37-47) % MCV (80-100) fL MCH (25-34) pg MCHC (32-36) g/dL RDW Std Deviation (36.4-46.3) fL RDW Coeff of Lori (11.5-14.5) % Plt Count (130-400) K/uL MPV (7.4-10.4) fL Immature Gran % (Auto) % Neut % (Auto) % Lymph % (Auto) % [place] % (Auto) % Eos % (Auto) % Baso % (Auto) % Neut # (Auto) (1.4-6.5) K/uL Lymph # (Auto) (1.2-3.4) K/uL [place] # (Auto) (0.11-0.59) K/uL Eos # (Auto) (0-0.5) K/uL Baso # (Auto) (0-0.2) K/uL Immature Gran # (Auto) (0.00-0.02) K/uL Hypochromasia Sodium (136-145) mmol/L Potassium (3.5-5.1) mmol/L Chloride (98-107) mmol/L Carbon Dioxide (21-32) mmol/L Anion Gap (3-11) BUN (6-23) mg/dl Creatinine (0.6-1.2) mg/dl Est Cr Clr Drug Dosing ml/min Est GFR ( Amer) ml/min Est GFR (Non-Af Amer) ml/min BUN/Creatinine Ratio (10-20) Glucose (70-99(Fasting)) mg/dl POC Glucose (70-99) mg/dl Lactate 3.7 H* (0.4-2.0) mmol/L Calcium (8.5-10.1) mg/dl Total Bilirubin (0.2-1.0) mg/dl AST (13-39) U/L ALT (7-52) U/L Alkaline Phosphatase (34-104) U/L Total Protein (6.0-8.3) gm/dl Albumin (3.4-5.0) gm/dl Globulin (2.5-4.0) gm/dl Albumin/Globulin Ratio (0.9-2) Procalcitonin (0-0.5) ng/ml Urine Color Dark Yellow Urine Appearance Cloudy A (Clear) Urine pH 5.5 (4.5-7.5) Ur Specific [place] 1.023 (1.000-1.030) Urine Protein 1+ H (Negative) Urine Glucose (UA) Negative (Negative) Urine Ketones Trace H (Negative) Urine Blood 2+ H (Negative) Urine Nitrite Positive A (Negative) Urine Bilirubin Negative (Negative) Urine Urobilinogen Negative (Negative) Ur Leukocyte Esterase 3+ H (Negative) Urine WBC (Auto) >30 H (0-5) /hpf Urine RBC (Auto) 5-10 H (0-4) /hpf U Hyaline Cast (Auto) 1-5 (0-5) /lpf U Epithel Cells (Auto) 10-20 H (0-5) /lpf Urine Bacteria (Auto) 4+ H (Negative) SARS-CoV-2, RNA, NAAT NEGATIVE (NEGATIVE) 02/20/22 02/20/22 Range/Units 15:20 15:20 WBC 8.92 (4.8-10.8) K/uL RBC 3.63 L (4.2-5.4) M/uL Hgb 9.4 L (12.0-16.0) g/dL Hct 29.9 L (37-47) % MCV 82.4 (80-100) fL MCH 25.9 (25-34) pg MCHC 31.4 L (32-36) g/dL RDW Std Deviation 45.8 (36.4-46.3) fL RDW Coeff of Lori 15.2 H (11.5-14.5) % Plt Count 245 (130-400) K/uL MPV 9.2 (7.4-10.4) fL Immature Gran % (Auto) 0.2 % Neut % (Auto) 84.8 % Lymph % (Auto) 9.1 % [place] % (Auto) 4.7 % Eos % (Auto) 0.9 % Baso % (Auto) 0.3 % Neut # (Auto) 7.56 H (1.4-6.5) K/uL Lymph # (Auto) 0.81 L (1.2-3.4) K/uL [place] # (Auto) 0.42 (0.11-0.59) K/uL Eos # (Auto) 0.08 (0-0.5) K/uL Baso # (Auto) 0.03 (0-0.2) K/uL Immature Gran # (Auto) 0.02 (0.00-0.02) K/uL Hypochromasia Present Sodium 132 L (136-145) mmol/L Potassium 3.8 (3.5-5.1) mmol/L Chloride 99 (98-107) mmol/L Carbon Dioxide 21 (21-32) mmol/L Anion Gap 12 H (3-11) BUN 14 (6-23) mg/dl Creatinine 0.94 (0.6-1.2) mg/dl Est Cr Clr Drug Dosing 49.1 ml/min Est GFR ( Amer) 66.9 ml/min Est GFR (Non-Af Amer) 57.7 ml/min BUN/Creatinine Ratio 14.9 (10-20) Glucose 138 H (70-99(Fasting)) mg/dl POC Glucose (70-99) mg/dl Lactate (0.4-2.0) mmol/L Calcium 8.7 (8.5-10.1) mg/dl Total Bilirubin 0.8 (0.2-1.0) mg/dl AST 29 (13-39) U/L ALT 11 (7-52) U/L Alkaline Phosphatase 57 (34-104) U/L Total Protein 7.3 (6.0-8.3) gm/dl Albumin 3.8 (3.4-5.0) gm/dl Globulin 3.5 (2.5-4.0) gm/dl Albumin/Globulin Ratio 1.1 (0.9-2) Procalcitonin (0-0.5) ng/ml Urine Color Urine Appearance (Clear) Urine pH (4.5-7.5) Ur Specific [place] (1.000-1.030) Urine Protein (Negative) Urine Glucose (UA) (Negative) Urine Ketones (Negative) Urine Blood (Negative) Urine Nitrite (Negative) Urine Bilirubin (Negative) Urine Urobilinogen (Negative) Ur Leukocyte Esterase (Negative) Urine WBC (Auto) (0-5) /hpf Urine RBC (Auto) (0-4) /hpf U Hyaline Cast (Auto) (0-5) /lpf U Epithel Cells (Auto) (0-5) /lpf Urine Bacteria (Auto) (Negative) SARS-CoV-2, RNA, NAAT (NEGATIVE) Diagnostic Findings Abdomen/Pelvis CT 02/20/22 16:02 CT SCAN OF THE ABDOMEN AND PELVIS WITHOUT IV CONTRAST CLINICAL HISTORY: Generalized abdominal pain. Sepsis. COMPARISON STUDY: No priors. TECHNIQUE: CT scan of the abdomen and pelvis is performed from the lung bases to the proximal femora. Images are reviewed in the axial, sagittal, and coronal planes. IV contrast was not administered for this examination. Note that the examination is suboptimal without oral and IV contrast. There is streak artifact from metallic spinal hardware. A dose lowering technique was utilized adhering to the principles of ALARA. CT DOSE: 391.53 mGy.cm FINDINGS: Lung bases: The heart is top normal in size and without pericardial effusion. The coronary arteries and mitral annulus are densely calcified. There is dimin ished attenuation of the cardiac blood pool as compared to the myocardium suggesting anemia. There is a small hiatal hernia. The lung bases are clear noting bibasilar scarring/atelectasis. Liver: The unenhanced liver is cirrhotic in morphology and heterogeneous in attenuation. There is nodularity of the hepatic surface contour and hypertrophy of the left lobe. There is no intrahepatic biliary ductal dilatation. Gallbladder: Surgically absent noting clips in the gallbladder fossa. Spleen: Normal in size and attenuation. Pancreas: The unenhanced pancreas is moderately atrophic and grossly unremarkable. Adrenal glands: Unremarkable. Kidneys: The unenhanced kidneys are atrophic and without hydronephrosis. There are no renal calculi identified. There is no evidence of contour deforming renal mass lesion. Abdominal vasculature: The abdominal aorta is normal in course and caliber noting moderate atherosclerotic calcification. Bowel: There is moderate sigmoid diverticulosis without CT evidence of acute diverticulitis. No bowel obstruction is identified. The appendix is not visualized. Duodenal diverticula are noted. Peritoneum: There is trace perihepatic ascites. No intraperitoneal free air is seen. There is evidence of previous ventral hernia repair. Lymphadenopathy: None. Pelvic viscera: The bladder wall is circumferentially thickened and there is pericystic inflammation. The uterus is surgically absent. No adnexal lesion is seen. Skeletal structures: The skeletal structures are osteopenic. There is postoperative and spondylotic change noted in the lumbar spine. No lytic or blastic lesions are seen. IMPRESSION: 1. Findings are typical for cystitis. Correlate with clinical findings and urinalysis. 2. Cirrhotic liver morphology and trace perihepatic ascites. 3. Sigmoid diverticulosis without CT evidence of acute diverticulitis. 4. Additional findings as above. ACT 112: Negative or not required by law. Electronically signed by: Cody Garcia M.D. 02/20/2022 4:41 PM PG Care Time/CCT Total # of Minutes Spent Total Time Spent with Patient: Total time spent is greater than 50% in coordination of care (as documented) at patient's floor/unit and/or counseling patient: Coding Level of Care Code 17762 Subseq Obs Care Lvl 3 Diagnoses Recurrent UTI N39.0 Hypothyroidism E03.9 Diabetes mellitus, type 2 E11.9 GERD (gastroesophageal reflux disease) K21.9 Hx of breast cancer Z85.3 Hyperlipidemia E78.5 Hypertension I10 Coronary artery disease I25.10 Liver cirrhosis K74.60 Anemia D64.9 Anemia type: unspecified type Hypomagnesemia E83.42 (1) Anemia Anemia type: unspecified type Qualified Code(s): D64.9 - Anemia, unspecified
[2022-02-21] MEDS: PHENAZOPYRIDINE HCL 200 MG TAB PO SCH ×3 (08:16→21:14)
[2022-02-21] MEDS: CHOLECALCIFEROL 1,000 UNITS 25 MCG TAB PO SCH (08:16)
[2022-02-21 08:27] LABS: Estimated Average Glucose 126 mg/dl
[2022-02-21 08:28] LABS: Hematocrit (blood only) 25.6 % (37-47); Hemoglobin 8.1 g/dL (12.0-16.0); Mean Corpuscular Hemoglobin 25.8 pg (25-34); Mean Corpuscular Hgb Conc 31.6 g/dL (32-36); Mean Corpuscular Volume 81.5 fL (80-100); Mean Platelet Volume 9.1 fL (7.4-10.4); Nucleated RBC # (auto) 0.02 K/uL (0-0); Nucleated RBC % (auto) 0.2 %; Platelet Count 167 K/uL (130-400); RDW Coefficient of Variation 15.4 % (11.5-14.5); RDW Standard Deviation 45.8 fL (36.4-46.3); Red Blood Count 3.14 M/uL (4.2-5.4); White Blood Count 6.85 K/uL (4.8-10.8)
[2022-02-21 08:42] LABS: BUN Creatinine Ratio 17.1 (10-20); Calcium 8.1 mg/dl (8.5-10.1); Creatinine Clr Calc Pharmacy 57.4 ml/min; Est GFR (African American) 78.9 ml/min; Est GFR (Non-African American) 68.1 ml/min; Magnesium 1.5 mg/dl (1.7-2.4); Potassium 3.7 mmol/L (3.5-5.1)
[2022-02-21] MEDS: INSULIN ASPART PER UNIT SC SCH ×4 (08:49→21:05)
[2022-02-21 08:54] LABS: Thyroid Stimulating Hormone 8.19 uIu/ml (0.300-4.500)
[2022-02-21] MEDS: MAGNESIUM CHLORIDE W/CALCIUM 64MG DELAYED REL TAB PO SCH (08:59)
[2022-02-21 09:13] LABS: Basophils # (auto) 0.03 K/uL (0-0.2); Basophils % (auto) 0.4 %; Eosinophils # (auto) 0.24 K/uL (0-0.5); Eosinophils % (auto) 3.5 %; Immature Granulocytes # (auto) 0.01 K/uL (0.00-0.02); Immature Granulocytes % (auto) 0.1 %; Lymphocytes % (auto) 11.7 %; Monocytes # (auto) 0.58 K/uL (0.11-0.59); Monocytes % (auto) 8.5 %; Neutrophils # (auto) 5.19 K/uL (1.4-6.5); Neutrophils % (auto) 75.8 %
[2022-02-21 09:26] LABS: T4 Free Thyroxine 1.26 ng/dl (0.61-1.60)
[2022-02-21] MEDS: MAGNESIUM SULFATE / D5W 1 GM/100 ML BAG IV SCH ×3 (10:06→14:25)
[2022-02-21] MEDS ORDERED: TOLTERODINE TARTRATE 2 MG TAB PO ONE (10:30)
[2022-02-21 11:33] LABS: Ferritin 31.5 ng/ml (8-388)
[2022-02-21] MEDS ORDERED: IRON SUCROSE 200 MG in 0.9 % SODIUM CHLORIDE 100 ML IV ONE (12:17)
[2022-02-21] MEDS: IRON SUCROSE 200 MG in 0.9 % SODIUM CHLORIDE 100 ML IV SCH (13:31)
[2022-02-21] MEDS: ONDANSETRON INJ 2 MG/ML 2 ML VIAL IV PRN (16:42)
[2022-02-21] MEDS ORDERED: levoFLOXacin/D5W 750 MG/150 ML BAG IV SCH (17:30)
[2022-02-21] MEDS: PANTOprazole 40 MG TAB PO SCH (21:14)
[2022-02-21] MEDS: ASPIRIN 81 MG CHEW PO SCH (21:14)
[2022-02-21] MEDS: ATORVASTATIN 40 MG TAB PO SCH (21:14)
[2022-02-22] MEDS: LEVOTHYROXINE SODIUM 112 MCG TABLET PO SCH (06:16)
[2022-02-22] MEDS ORDERED: LEVOTHYROXINE SODIUM 125 MCG TABLET PO SCH (06:30)
[2022-02-22] MEDS: ONDANSETRON INJ 2 MG/ML 2 ML VIAL IV PRN (08:04)
[2022-02-22] MEDS: CHOLECALCIFEROL 1,000 UNITS 25 MCG TAB PO SCH (08:04)
[2022-02-22] MEDS: PHENAZOPYRIDINE HCL 200 MG TAB PO SCH ×3 (08:04→21:09)
[2022-02-22] MEDS: MAGNESIUM CHLORIDE W/CALCIUM 64MG DELAYED REL TAB PO SCH (08:04)
[2022-02-22] MEDS: METOPROLOL SUCC 50MG EXT REL TAB PO SCH ×2 (08:07→21:08)
--- NOTE | 2022-02-22 08:13 | Hospitalist Progress Note ---
Date of Service February 22, 2022 Assessment & Plan (1) Recurrent UTI: Plan: Prior UTIs Klebsiella oxytoca resistant to ampicillin, Adrianna glabrata susceptible to Voriconazole, Klebsiella pneumoniae resistant to ampicillin, pansensitive E. coli x2, Enterobacter aerogenes resistant to cefazolin and ampicillin (intermediate resistant to nitrofurantoin). Notes in prior HPI from [facility] with possible prolapse bladder During this time she has also had two sets of negative blood culture (5 days) Increased risk of UTIs with tamoxifen therefore will place this on hold, also increased risk with her diabetes (not on SGLT2 inhibitor) Sx: Significant Dysuria CTAP done to evaluate structural abn -->no structural abnormalities 1. Findings are typical for cystitis. Correlate with clinical findings and urinalysis. 2. Cirrhotic liver morphology and trace perihepatic ascites. 3. Sigmoid diverticulosis without CT evidence of acute diverticulitis. 4. Additional findings as above. Lactic 3.7 on admit, IVF provided, repeat wnl Cefepime ordered on admit, however [facility] 100,000 CFU Enterobacter cloacae, resistance to Rocephin/cefepime and all others except Levaquin and Amikacin however OUR culture with INTERMED to Levaquin and ONLY sensitive to brandon/erta Discussed with pharmacy and placed on Ertapenem daily given plans for IV abx at d/c BCx ngtd US guided IV ordered, CM alerted for IV abx Home infusion company to accept but not until Friday Will plan to d/c after Friday dose to complete 14 day course given recurrent infections and MDR CM navigator to work on getting outpatient set up with ID Last documented elevation in temp 37.7 02/20 Pyridium prn dysuria, zofran prn nausea Monitor response w/ abx change (2) Hypothyroidism: Plan: TSH with AM labs -- elevated to 8.19, however discussed with patient and she was unaware of proper way to take on empty stomach before other pills and admitted to taking after she eats breakfast Continue levothyroxine 112 mcg PO QAM and recommending taking appropriately at discharge/repeat labs with PCP in 4-6 weeks (3) Diabetes mellitus, type 2: Plan: Hemoglobin A1C unknown, A1c 6.3 on AM labs (patient thinks her prior A1c 6.3) Switch Levemir 40 units QPM with Lantus 20 units BID decreased to 10 BID given decreased appetite and sugars running lower and utilize SSI/adjustments as needed (4) GERD (gastroesophageal reflux disease): Plan: Switch omeprazole for pantoprazole per hospital formulary (5) Hx of breast cancer: Plan: hx L partial mastectomy 2013 and 34 rounds radiation and maintained on tamoxifen follows with her PCP -> rec f/u to discuss possibly continued on anastrazole given post-menopausal (6) Hyperlipidemia: Plan: Continue atorvastatin (7) Hypertension: Plan: Continue metoprolol tartrate Hold lisinopril due to low normal BP/poor PO intake [employer] BP stable and if PO intake improving in AM resume lisinopril Monitor (8) Coronary artery disease: Plan: History of cardiac stent 2017 or 2018 - Prieto Carmen Follows with dr Cee in [place] reported however patient reports he retired and she hasn't been followed by anyone yet but rec having ref from PCP for new charge lpn locally Had previously been on plavix/asa following her stent but reported after last rx this was never continued and she stopped this ? if only needed DAPT x 1 year following stent Remains on ASA, metoprolol, atorvastatin Lisinopril on hold for above with plans to resume in AM (9) Liver cirrhosis: Plan: Notes history of this without need for paracentesis not on any spironolactone/lasix LFTs wnl on admission Check INR in AM -- 1.2, no bleeding (10) Anemia: Plan: Longstanding, takes 1 tablet daily at home hgb 8.1 on am labs, checked iron panel given borderline low MCV Iron 16, trans% 5 Venofer IV ordered 300mg IV x 3 doses which will complete 02/23 No blood in stool reported reports c-scope ~ 3 yrs ago, next due in 2 years EGD 2019 with nonbleeding esophageal varices and portal gastropathy--> now o verdue for repeat EGD Denies use of NSAIDs Check B12 w/ am labs as well given balance/memory/neuropathy and on metformin -- borderline low and IM injections while inpatient, PO at d/c hgb stable -f/u with GI for repeat scopes after discharge (11) Hypomagnesemia: Plan: checked given SOB w/ ambulation/cramping and prior notes from Oct w/ admission for borderline sepsis at [facility] w/ fall and low magnesium had been placed on daily supplementation but checked Mag level, low 1.5 and IV replacement ordered Mag 1.9 on repeat Plan: continued inpatient stay, likely d/c on Friday as IV abx arranged for home health starting Friday Admission and Anticipated Discharge Date Admission Date: February 20, 2022 Supervising Physician Co-Signing Physician Notes TOMI Supervision Note: I did not personally see or examine the patient today, but I verified all chung points of TOMI Christiansen's assessment and plan with the following exceptions/additions: None Subjective patient evaluated this morning. still with burning with urination but overall feeling improved. discussed our urine cultures and they are actually intermediate to levaquin and switched to ertapenem and discussed having CM arrange for outpatient antibiotics. Also having navigator assist with ID outpatient follow up given multiple utis/drug resistance. No fever/chills, chest pain, shortness of breath, abdominal discomfort. Not great appetite but improved compared to days prior. Passing gas but no BM. Questions/concerns addressed at this time. Review of Systems Review of Systems: All systems reviewed & are unremarkable except as noted in HPI & below Physical Exam Physical Exam: General: WD/WN female sitting up in chair, NAD, general pallor HEENT: head atraumatic normocephalic, mm slightly dry, trachea midline without deviation Chest: s/p L partial mastectomy Resp: CTAB, diminished in the bases, no w/r, on room air CV: RRR, systolic murmur, no rub/gallop, no calf tenderness, trace dependent pedal edema GI: +BS, soft, suprapubic discomfort but otherwise non-tender : no fitzgerald MSK/Neuro: moves all extremities, no focal deficit, answering questions appropriately Skin: dry, cool Results & Data Results & Data ([facility]) Vital Signs (Past 12 Hours) Vital Signs Temp Pulse Resp BP Pulse Ox 02/22/22 08:07 66 130/71 02/21/22 22:32 37.2 C 102 H 20 116/67 93 02/21/22 21:12 72 100/54 L Laboratory Results 02/22/22 02/22/22 02/22/22 Range/Units 08:32 08:32 08:32 WBC (4.8-10.8) K/uL RBC (4.2-5.4) M/uL Hgb (12.0-16.0) g/dL Hct (37-47) % MCV (80-100) fL MCH (25-34) pg MCHC (32-36) g/dL RDW Std Deviation (36.4-46.3) fL RDW Coeff of Lori (11.5-14.5) % Plt Count (130-400) K/uL MPV (7.4-10.4) fL Immature Gran % (Auto) % Neut % (Auto) % Lymph % (Auto) % Crowley % (Auto) % Eos % (Auto) % Baso % (Auto) % Neut # (Auto) (1.4-6.5) K/uL Lymph # (Auto) (1.2-3.4) K/uL Crowley # (Auto) (0.11-0.59) K/uL Eos # (Auto) (0-0.5) K/uL Baso # (Auto) (0-0.2) K/uL Immature Gran # (Auto) (0.00-0.02) K/uL PT 12.3 H (9.0-12.0) Seconds INR 1.2 H (0.9-1.1) Sodium 134 L (136-145) mmol/L Potassium 4.1 (3.5-5.1) mmol/L Chloride 105 (98-107) mmol/L Carbon Dioxide 23 (21-32) mmol/L Anion Gap 6 (3-11) BUN 10 (6-23) mg/dl Creatinine 0.74 (0.6-1.2) mg/dl Est Cr Clr Drug Dosing 63.6 ml/min Est GFR ( Amer) 89.3 ml/min Est GFR (Non-Af Amer) 77.1 ml/min BUN/Creatinine Ratio 13.5 (10-20) Glucose 111 H (70-99(Fasting)) mg/dl POC Glucose (70-99) mg/dl Calcium 8.1 L (8.5-10.1) mg/dl Phosphorus 2.4 L (2.5-4.9) mg/dl Magnesium 1.9 (1.7-2.4) mg/dl Iron (35-150) mcg/dl TIBC (250-450) mcg/dl Unsaturated IBC (155-355) mcg/dl Transferrin % Sat (15-50) % Ferritin (8-388) ng/ml Total Bilirubin 0.7 (0.2-1.0) mg/dl AST 25 (13-39) U/L ALT 10 (7-52) U/L Alkaline Phosphatase 49 (34-104) U/L Total Protein 6.2 (6.0-8.3) gm/dl Albumin 3.2 L (3.4-5.0) gm/dl Globulin 3.0 (2.5-4.0) gm/dl Albumin/Globulin Ratio 1.1 (0.9-2) Vitamin B12 230 (180-914) pg/ml 25-OH Vitamin D Total 59.0 (30-100) ng/ml 02/22/22 02/22/22 02/21/22 Range/Units 08:32 07:52 20:53 WBC 7.18 (4.8-10.8) K/uL RBC 3.23 L (4.2-5.4) M/uL Hgb 8.3 L (12.0-16.0) g/dL Hct 26.3 L (37-47) % MCV 81.4 (80-100) fL MCH 25.7 (25-34) pg MCHC 31.6 L (32-36) g/dL RDW Std Deviation 46.3 (36.4-46.3) fL RDW Coeff of Lori 15.6 H (11.5-14.5) % Plt Count 198 (130-400) K/uL MPV 9.6 (7.4-10.4) fL Immature Gran % (Auto) 0.3 % Neut % (Auto) 75.6 % Lymph % (Auto) 9.6 % Crowley % (Auto) 9.1 % Eos % (Auto) 4.7 % Baso % (Auto) 0.7 % Neut # (Auto) 5.43 (1.4-6.5) K/uL Lymph # (Auto) 0.69 L (1.2-3.4) K/uL Crowley # (Auto) 0.65 H (0.11-0.59) K/uL Eos # (Auto) 0.34 (0-0.5) K/uL Baso # (Auto) 0.05 (0-0.2) K/uL Immature Gran # (Auto) 0.02 (0.00-0.02) K/uL PT (9.0-12.0) Seconds INR (0.9-1.1) Sodium (136-145) mmol/L Potassium (3.5-5.1) mmol/L Chloride (98-107) mmol/L Carbon Dioxide (21-32) mmol/L Anion Gap (3-11) BUN (6-23) mg/dl Creatinine (0.6-1.2) mg/dl Est Cr Clr Drug Dosing ml/min Est GFR ( Amer) ml/min Est GFR (Non-Af Amer) ml/min BUN/Creatinine Ratio (10-20) Glucose (70-99(Fasting)) mg/dl POC Glucose 81 110 H (70-99) mg/dl Calcium (8.5-10.1) mg/dl Phosphorus (2.5-4.9) mg/dl Magnesium (1.7-2.4) mg/dl Iron (35-150) mcg/dl TIBC (250-450) mcg/dl Unsaturated IBC (155-355) mcg/dl Transferrin % Sat (15-50) % Ferritin (8-388) ng/ml Total Bilirubin (0.2-1.0) mg/dl AST (13-39) U/L ALT (7-52) U/L Alkaline Phosphatase (34-104) U/L Total Protein (6.0-8.3) gm/dl Albumin (3.4-5.0) gm/dl Globulin (2.5-4.0) gm/dl Albumin/Globulin Ratio (0.9-2) Vitamin B12 (180-914) pg/ml 25-OH Vitamin D Total (30-100) ng/ml 02/21/22 02/21/22 02/21/22 Range/Units 17:11 11:41 08:05 WBC (4.8-10.8) K/uL RBC (4.2-5.4) M/uL Hgb (12.0-16.0) g/dL Hct (37-47) % MCV (80-100) fL MCH (25-34) pg MCHC (32-36) g/dL RDW Std Deviation (36.4-46.3) fL RDW Coeff of Lori (11.5-14.5) % Plt Count (130-400) K/uL MPV (7.4-10.4) fL Immature Gran % (Auto) % Neut % (Auto) % Lymph % (Auto) % Crowley % (Auto) % Eos % (Auto) % Baso % (Auto) % Neut # (Auto) (1.4-6.5) K/uL Lymph # (Auto) (1.2-3.4) K/uL Crowley # (Auto) (0.11-0.59) K/uL Eos # (Auto) (0-0.5) K/uL Baso # (Auto) (0-0.2) K/uL Immature Gran # (Auto) (0.00-0.02) K/uL PT (9.0-12.0) Seconds INR (0.9-1.1) Sodium (136-145) mmol/L Potassium (3.5-5.1) mmol/L Chloride (98-107) mmol/L Carbon Dioxide (21-32) mmol/L Anion Gap (3-11) BUN (6-23) mg/dl Creatinine (0.6-1.2) mg/dl Est Cr Clr Drug Dosing ml/min Est GFR ( Amer) ml/min Est GFR (Non-Af Amer) ml/min BUN/Creatinine Ratio (10-20) Glucose (70-99(Fasting)) mg/dl POC Glucose 130 H 136 H (70-99) mg/dl Calcium (8.5-10.1) mg/dl Phosphorus (2.5-4.9) mg/dl Magnesium (1.7-2.4) mg/dl Iron 16 L (35-150) mcg/dl TIBC 307 (250-450) mcg/dl Unsaturated IBC 291 (155-355) mcg/dl Transferrin % Sat 5 L (15-50) % Ferritin 31.5 (8-388) ng/ml Total Bilirubin (0.2-1.0) mg/dl AST (13-39) U/L ALT (7-52) U/L Alkaline Phosphatase (34-104) U/L Total Protein (6.0-8.3) gm/dl Albumin (3.4-5.0) gm/dl Globulin (2.5-4.0) gm/dl Albumin/Globulin Ratio (0.9-2) Vitamin B12 (180-914) pg/ml 25-OH Vitamin D Total (30-100) ng/ml PG Care Time/CCT Total # of Minutes Spent Total Time Spent with Patient: Total time spent is greater than 50% in coordination of care (as documented) at patient's floor/unit and/or counseling patient: Coding Level of Care Code 44776 Subseq Hosp Care Lvl 3 Diagnoses Recurrent UTI N39.0 Hypothyroidism E03.9 Diabetes mellitus, type 2 E11.9 GERD (gastroesophageal reflux disease) K21.9 Hx of breast cancer Z85.3 Hyperlipidemia E78.5 Hypertension I10 Coronary artery disease I25.10 Liver cirrhosis K74.60 Anemia D64.9 Anemia type: unspecified type Hypomagnesemia E83.42 (1) Anemia Anemia type: unspecified type Qualified Code(s): D64.9 - Anemia, unspecified
[2022-02-22 08:53] LABS: INR 1.2 (0.9-1.1); Prothrombin Time 12.3 Seconds (9.0-12.0)
[2022-02-22 08:55] LABS: Basophils # (auto) 0.05 K/uL (0-0.2); Basophils % (auto) 0.7 %; Eosinophils # (auto) 0.34 K/uL (0-0.5); Eosinophils % (auto) 4.7 %; Hematocrit (blood only) 26.3 % (37-47); Hemoglobin 8.3 g/dL (12.0-16.0); Immature Granulocytes # (auto) 0.02 K/uL (0.00-0.02); Immature Granulocytes % (auto) 0.3 %; Lymphocytes # (auto) 0.69 K/uL (1.2-3.4); Lymphocytes % (auto) 9.6 %; Mean Corpuscular Hemoglobin 25.7 pg (25-34); Mean Corpuscular Hgb Conc 31.6 g/dL (32-36); Mean Corpuscular Volume 81.4 fL (80-100); Mean Platelet Volume 9.6 fL (7.4-10.4); Monocytes # (auto) 0.65 K/uL (0.11-0.59); Monocytes % (auto) 9.1 %; Neutrophils # (auto) 5.43 K/uL (1.4-6.5); Neutrophils % (auto) 75.6 %; Platelet Count 198 K/uL (130-400); RDW Coefficient of Variation 15.6 % (11.5-14.5); RDW Standard Deviation 46.3 fL (36.4-46.3); Red Blood Count 3.23 M/uL (4.2-5.4); White Blood Count 7.18 K/uL (4.8-10.8)
[2022-02-22 09:09] LABS: Albumin Globulin Ratio 1.1 (0.9-2); Albumin Level 3.2 gm/dl (3.4-5.0); BUN Creatinine Ratio 13.5 (10-20); Bilirubin,Total 0.7 mg/dl (0.2-1.0); Calcium 8.1 mg/dl (8.5-10.1); Creatinine Clr Calc Pharmacy 63.6 ml/min; Est GFR (African American) 89.3 ml/min; Est GFR (Non-African American) 77.1 ml/min; Magnesium 1.9 mg/dl (1.7-2.4); Phosphorus 2.4 mg/dl (2.5-4.9); Potassium 4.1 mmol/L (3.5-5.1); Total Protein 6.2 gm/dl (6.0-8.3)
[2022-02-22] MEDS: IRON SUCROSE 200 MG in 0.9 % SODIUM CHLORIDE 100 ML IV SCH (09:24)
[2022-02-22] MEDS: INSULIN ASPART PER UNIT SC SCH ×4 (09:32→20:59)
[2022-02-22] MEDS: INSULIN GLARGINE SOLOSTAR 100 UNITS/ML 3 ML PEN SC SCH (09:34)
[2022-02-22] MEDS ORDERED: INSULIN GLARGINE SOLOSTAR 100 UNITS/ML 3 ML PEN SC SCH ×2 (10:00→21:00)
[2022-02-22] MEDS: CYANOCOBALAMIN 1000 MCG/ML VIAL IM SCH (11:14)
[2022-02-22] MEDS: ERTAPENEM SODIUM 1,000 MG in SYRINGE 0 ML IV SCH (11:41)
[2022-02-22] MEDS: PANTOprazole 40 MG TAB PO SCH (21:08)
[2022-02-22] MEDS: ASPIRIN 81 MG CHEW PO SCH (21:09)
[2022-02-22] MEDS: ATORVASTATIN 40 MG TAB PO SCH (21:09)
[2022-02-22] MEDS: ACETAMINOPHEN 325 MG TAB PO PRN (21:14)
[2022-02-23] MEDS: LEVOTHYROXINE SODIUM 112 MCG TABLET PO SCH (05:31)
[2022-02-23 06:36] LABS: Hematocrit (blood only) 27.5 % (37-47); Hemoglobin 8.6 g/dL (12.0-16.0); Mean Corpuscular Hemoglobin 25.4 pg (25-34); Mean Corpuscular Hgb Conc 31.3 g/dL (32-36); Mean Corpuscular Volume 81.1 fL (80-100); Mean Platelet Volume 9.5 fL (7.4-10.4); Platelet Count 221 K/uL (130-400); RDW Coefficient of Variation 15.8 % (11.5-14.5); RDW Standard Deviation 46.2 fL (36.4-46.3); Red Blood Count 3.39 M/uL (4.2-5.4)
[2022-02-23 07:01] LABS: Albumin Level 3.1 gm/dl (3.4-5.0); BUN Creatinine Ratio 14.9 (10-20); Bilirubin,Total 0.6 mg/dl (0.2-1.0); Calcium 8.4 mg/dl (8.5-10.1); Creatinine Clr Calc Pharmacy 70.3 ml/min; Est GFR (African American) 96.9 ml/min; Est GFR (Non-African American) 83.6 ml/min; Magnesium 1.8 mg/dl (1.7-2.4); Total Protein 6.1 gm/dl (6.0-8.3)
--- NOTE | 2022-02-23 08:19 | Hospitalist Progress Note ---
Date of Service February 23, 2022 Assessment & Plan (1) Recurrent UTI: Plan: Prior UTIs Klebsiella oxytoca resistant to ampicillin, Adrianna glabrata susceptible to Voriconazole, Klebsiella pneumoniae resistant to ampicillin, pansensitive E. coli x2, Enterobacter aerogenes resistant to cefazolin and ampicillin (intermediate resistant to nitrofurantoin). Notes in prior HPI from [facility] with possible prolapse bladder During this time she has also had two sets of negative blood culture (5 days) Increased risk of UTIs with tamoxifen therefore will place this on hold, also increased risk with her diabetes (not on SGLT2 inhibitor) Sx: Significant Dysuria, improving CTAP done -->no structural abnormalities Lactic 3.7, IVF provided, resolved on repeat Cefepime on admit,[facility] cx w 100,000 CFU Enterobacter cloacae RESISTANT TO SUCH Switched to Levaquin based on prior sensitivities, however our cx intermed to such and switched to Ertapenem IV daily 02/22 and needing IV abx at d/c to complete course Isolation precautions BCx remain NGTD US guided IV ordered, CM arranged for home infusion company to accept but not until Friday Outpt f/u ID as well as Urology for cysto as discussed with urology earlier in week Pyridium prn dysuria changed to full admit Will plan to d/c after Friday dose to complete 14 day course given recurrent infections and MDR. Home infusion company to arrive Friday (2) Hypothyroidism: Plan: TSH with AM labs -- elevated to 8.19, however discussed with patient and she was unaware of proper way to take on empty stomach before other pills and admitted to taking after she eats breakfast Continue levothyroxine 112 mcg PO QAM and recommending taking appropriately at discharge/repeat labs with PCP in 4-6 weeks (3) Diabetes mellitus, type 2: Plan: Hemoglobin A1C unknown, A1c 6.0 on AM labs (patient thinks her prior A1c 6.3) Switch Levemir 40 units QPM with Lantus 20 units BID decreased to 10 BID given decreased appetite and sugars running lower and utilize SSI/adjustments as needed --> decreased to 5u BID last evening however continuing to run lower due to poor intake and placed on hold and will utilize SSI while inpatient ? 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 --> improving today and will resume for AM r (8) Coronary artery disease: Plan: History of cardiac stent 2017 or 2018 - Prieto Carmen Follows with dr Cee in [place] reported however patient reports he retired and she hasn't been followed by anyone yet but rec having ref from 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 Had previously been on plavix/asa following her stent but reported after last rx this was never continued and she stopped this but was on Plavix >1 year Remains on ASA 81mg daily Continued metoprolol, atorvastatin Lisinopril to resume in AM No CP/SOb, however of note did not have symptoms prior to needing stent and had cath after abn stress echo (9) Liver cirrhosis: Plan: Notes history of this without need for paracentesis not on any spironolactone/lasix LFTs wnl on admission Check INR in AM -- 1.2, no bleeding (10) Anemia: Plan: Longstanding, takes 1 tablet daily at home hgb 8.1 on am labs, checked iron panel given borderline low MCV Iron 16, trans% 5 Venofer IV ordered 300mg IV x 3 doses which will complete 02/23 No blood in stool reported reports c-scope ~ 3 yrs ago, next due in 2 years EGD 2019 with nonbleeding esophageal varices and portal gastropathy--> now overdue for repeat EGD Denies use of NSAIDs Check B12 w/ am labs as well given balance/memory/neuropathy and on metformin -- borderline low and IM injections while inpatient, PO at d/c hgb stable -f/u with GI for repeat scopes after discharge (11) Hypomagnesemia: Plan: checked given SOB w/ ambulation/cramping and prior notes from Oct w/ admission for borderline sepsis at [place] w/ fall and low magnesium had been placed on daily supplementation but checked Mag level, low 1.5 and IV replacement ordered Mag 1.8 on repeat Plan: discharge tomorrow after IV abx given, home infusion arranged for friday need outpt EGD for monitoring given cirrhosis and having respiratory director f/u about arranging outpatient ID in followup given multiple utis with MDR Also need Urology f/u outpatient for cysto Admission and Anticipated Discharge Date Admission Date: February 22, 2022 Supervising Physician Co-Signing Physician Notes PA Supervision Note: I did not personally see or examine the patient today, but I verified all chung p oints of TOMI Christiansen's assessment and plan with the following exceptions/additions: None Subjective evaluated this morning improvement in appetite less burning with urination but occassional twinge. discussed pyridium and she is agreeable to dose and notes hasn't gotten one in a while as urine no longer oragne but overall feeling much improved. she notes gets yearly egd and was to have done but will need reschedule outpatient of note, states grandmother from "brights" disease. no fever/chill, no chest pain/shortness ofbreath. pain to SI joint resolved and she thinks from kidneys and could consider holding off lidocaine injection. plans for d/c tomorrow and grand daugther able to transport but will need to leave by so that she is able to work second shift. Review of Systems Review of Systems: All systems reviewed & are unremarkable except as noted in HPI & below Physical Exam Physical Exam: General: WD/WN female sitting up in chair, NAD, general pallor HEENT: head atraumatic normocephalic, mmm, trachea midline without deviation Chest: s/p L partial mastectomy Resp: CTAB, diminished in the bases, no w/r, on room air CV: RRR, systolic murmur, no rub/gallop, no calf tenderness, trace dependent pedal edema GI: +BS, soft, suprapubic discomfort IMPROVED but otherwise non-tender : no fitzgerald MSK/Neuro: moves all extremities, no focal deficit, answering questions appropriately Skin: dry, cool Results & Data Results & Data ([facility]) Vital Signs (Past 12 Hours) Vital Signs Temp Pulse Resp BP Pulse Ox 02/23/22 07:32 36.7 C 80 18 113/63 90 02/22/22 20:51 37 C 89 20 134/65 92 PG Care Time/CCT Total # of Minutes Spent Total Time Spent with Patient: Total time spent is greater than 50% in coordination of care (as documented) at patient's floor/unit and/or counseling patient: Coding Level of Care Code 35811 Subseq Hosp Care Lvl 2 Diagnoses Recurrent UTI N39.0 Hypothyroidism E03.9 Diabetes mellitus, type 2 E11.9 GERD (gastroesophageal reflux disease) K21.9 Hx of breast cancer Z85.3 Hyperlipidemia E78.5 Hypertension I10 Coronary artery disease I25.10 Liver cirrhosis K74.60 Anemia D64.9 Anemia type: unspecified type Hypomagnesemia E83.42 (1) Anemia Anemia type: unspecified type Qualified Code(s): D64.9 - Anemia, unspecified
[2022-02-23] MEDS: METOPROLOL SUCC 50MG EXT REL TAB PO SCH ×2 (09:45→20:17)
[2022-02-23] MEDS: MAGNESIUM CHLORIDE W/CALCIUM 64MG DELAYED REL TAB PO SCH (09:45)
[2022-02-23] MEDS: CHOLECALCIFEROL 1,000 UNITS 25 MCG TAB PO SCH (09:45)
[2022-02-23] MEDS: CYANOCOBALAMIN 1000 MCG/ML VIAL IM SCH (09:48)
[2022-02-23] MEDS: IRON SUCROSE 200 MG in 0.9 % SODIUM CHLORIDE 100 ML IV SCH (09:51)
[2022-02-23] MEDS: INSULIN ASPART PER UNIT SC SCH ×4 (09:56→21:19)
[2022-02-23] MEDS: PHENAZOPYRIDINE HCL 200 MG TAB PO PRN ×2 (13:00→20:21)
[2022-02-23] MEDS: ERTAPENEM SODIUM 1,000 MG in SYRINGE 0 ML IV SCH (13:00)
[2022-02-23] MEDS: ASPIRIN 81 MG CHEW PO SCH (20:17)
[2022-02-23] MEDS: PANTOprazole 40 MG TAB PO SCH (20:17)
[2022-02-23] MEDS: ATORVASTATIN 40 MG TAB PO SCH (20:17)
[2022-02-24] MEDS: LEVOTHYROXINE SODIUM 112 MCG TABLET PO SCH (05:33)
[2022-02-24 06:32] LABS: Est GFR (African American) 102.8 ml/min; Est GFR (Non-African American) 88.7 ml/min
--- NOTE | 2022-02-24 07:53 | Discharge Summary ---
Date of Service February 24, 2022 Admission HPI Per Admitting Provider Kaelyn Aguila is a 81 year old female who presents to the ER on advice of her urologist due to dysuria. She has a significant history of recurrent UTIs for which she was establishing care with urology today. She usually has her care in [facility] and all her previous cultures are in the lab there (summarized in A/P). Due to significant dysuria she was referred to the ER today by urology for CT to assess for anatomical reason for UTIs and possible need for IV antibiotics. The patient reports ongoing dysuria and generalized weakness on this occasion for the last 2 weeks but much worse the last 2 days. For the last year she has had a lot of dysuria but she think it does resolve after treatment for UTIs but not for a long period. She has been hospitalized for possible UTI sepsis within the last year however blood culture have always been negative. No fever or chills. She is having left flank pain. In the ER urine and blood culture were taken, WBC 8.92. She was given cefepime 2g IV q8h. Given urology note questioning to use meropenem this was initially ordered but on receiving faxes from [facility] I see no significant resistance in the past warranting this therefore it was discontinued prior to being given. She was referred to medicine for admission and ongoing management of UTI with tachycardia and concern for multi-drug resistance. Admission Exam Per Admitting Provider Constitutional: WD/WN, vitals as above Neck: trachea midline, no thyromegaly Respiratory: normal respiratory effort, lungs clear to auscultation Cardiovascular: RRR, no murmur, no edema Gastrointestinal (Abdomen): normal bowel sounds, soft, nontender, no hepatosplenomegaly Musculoskeletal: no cyanosis or clubbing, extremities motor strength 5/5 Skin: no rashes, warm and dry Neurologic: moves all extremities and awake; no focal motor deficits and not confused D Psychiatric: A+Ox3, euthymic affect Genitourinary: no CVA tenderness Principal Diagnosis MDR UTI, Enterobacter Cloacae Discharge Exam General: WD/WN female sitting up in chair, NAD, general pallor improved HEENT: head atraumatic normocephalic, mmm, trachea midline without deviation Chest: s/p L partial mastectomy Resp: CTAB, diminished in the bases, no w/r, on room air CV: RRR, systolic murmur, no rub/gallop, no calf tenderness, trace dependent pedal edema GI: +BS, soft, suprapubic discomfort RESOLVED, non-tender, no guarding : no fitzgerald, no CVA tenderness MSK/Neuro: moves all extremities, no focal deficit, answering questions appropriately Skin: warm, no rashes Discharge Data Allergies Allergy/AdvReac Type Severity Reaction Status Date / Time morphine AdvReac Severe MIGRAINES Verified 02/20/22 19:00 Consultations 02/20/22 16:59 ED Decision to Admit Stat 02/21/22 08:51 Consult Health Information Management Routine 02/21/22 17:02 Consult Health Information Management Routine Ordered Studies Abdomen/Pelvis CT 02/20/22 16:02 CT SCAN OF THE ABDOMEN AND PELVIS WITHOUT IV CONTRAST CLINICAL HISTORY: Generalized abdominal pain. Sepsis. COMPARISON STUDY: No priors. TECHNIQUE: CT scan of the abdomen and pelvis is performed from the lung bases to the proximal femora. Images are reviewed in the axial, sagittal, and coronal planes. IV contrast was not administered for this examination. Note that the examination is suboptimal without oral and IV contrast. There is streak artifact from metallic spinal hardware. A dose lowering technique was utilized adhering to the principles of ALARA. CT DOSE: 391.53 mGy.cm FINDINGS: Lung bases: The heart is top normal in size and without pericardial effusion. The coronary arteries and mitral annulus are densely calcified. There is diminished attenuation of the cardiac blood pool as compared to the myocardium suggesting anemia. There is a small hiatal hernia. The lung bases are clear noting bibasilar scarring/atelectasis. Liver: The unenhanced liver is cirrhotic in morphology and heterogeneous in attenuation. There is nodularity of the hepatic surface contour and hypertrophy of the left lobe. There is no intrahepatic biliary ductal dilatation. Gallbladder: Surgically absent noting clips in the gallbladder fossa. Spleen: Normal in size and attenuation. Pancreas: The unenhanced pancreas is moderately atrophic and grossly unremarkable. Adrenal glands: Unremarkable. Kidneys: The unenhanced kidneys are atrophic and without hydronephrosis. There are no renal calculi identified. There is no evidence of contour deforming renal mass lesion. Abdominal vasculature: The abdominal aorta is normal in course and caliber noting moderate atherosclerotic calcification. Bowel: There is moderate sigmoid diverticulosis without CT evidence of acute diverticulitis. No bowel obstruction is identified. The appendix is not visualized. Duodenal diverticula are noted. Peritoneum: There is trace perihepatic ascites. No intraperitoneal free air is seen. There is evidence of previous ventral hernia repair. Lymphadenopathy: None. Pelvic viscera: The bladder wall is circumferentially thickened and there is pericystic inflammation. The uterus is surgically absent. No adnexal lesion is seen. Skeletal structures: The skeletal structures are osteopenic. There is postoperative and spondylotic change noted in the lumbar spine. No lytic or blastic lesions are seen. IMPRESSION: 1. Findings are typical for cystitis. Correlate with clinical findings and urinalysis. 2. Cirrhotic liver morphology and trace perihepatic ascites. 3. Sigmoid diverticulosis without CT evidence of acute diverticulitis. 4. Additional findings as above. ACT 112: Negative or not required by law. Electronically signed by: Cody Garcia M.D. 02/20/2022 4:41 PM Hospital Course (1) Recurrent UTI: Prior UTIs Klebsiella oxytoca resistant to ampicillin, Adrianna glabrata susceptible to Voriconazole, Klebsiella pneumoniae resistant to ampicillin, pansensitive E. coli x2, Enterobacter aerogenes resistant to cefazolin and ampicillin (intermediate resistant to nitrofurantoin). Notes in prior HPI from [facility] with possible prolapse bladder During this time she has also had two sets of negative blood culture (5 days) Increased risk of UTIs with tamoxifen therefore will place this on hold, also increased risk with her diabetes (not on SGLT2 inhibitor) Significant Dysuria, improved at d/c and sent prn pyridium CTAP done -->no structural abnormalities Lactic 3.7, IVF provided, resolved on repeat Cefepime on admit,[facility] cx w 100,000 CFU Enterobacter cloacae RESISTANT TO SUCH Switched to Levaquin based on prior sensitivities, however our cx intermed to such and switched to Ertapenem IV daily 02/22 and needing IV abx at d/c to complete course Isolation precautions maintained given resistance BCx remain NGTD US guided IV ordered, CM arranged for home infusion Outpt f/u ID as well as Urology for cysto as discussed with urology earlier in week Discharged with total 14 day course given recurrent infections and MDR. Home infusion company to arrive Friday (2) Hypothyroidism: TSH-- elevated to 8.19, however discussed with patient and she was unaware of proper way to take on empty stomach before other pills and admitted to taking after she eats breakfast (did have low energy/dry skin, pre-tibial edema on admit but again not taking correctly) Continue levothyroxine 112 mcg PO QAM and recommending taking appropriately at discharge/repeat labs with PCP in 4-6 weeks (3) Diabetes mellitus, type 2: Hemoglobin A1C unknown, A1c 6.0 on AM labs (patient thinks her prior A1c 6.3) Switched Levemir 40 units QPM with Lantus 20 units BID decreased to 10 BID days prior due to decreased appetite and of note was anemic so A1c could be inaccurate Appetite resolved and ate great breakfast prior to discharge, bsgs stable and instructed patient to utilize 5u glargine at night at discharge (has graciela monitor L arm) and monitor sugars at home to prevent any hypoglycemia at home F/u PCP this week or sooner if needed based on BSG readings Also checked B12 given neuropathy/balance and was low normal 222 and IM replacement given while inpatient and PO sent at discharge (patient did note B12 injections as a child, rec'd f/u PCP) (4) GERD (gastroesophageal reflux disease): Switched omeprazole for pantoprazole per hospital formulary but can continue usual meds at d/c (5) Hx of breast cancer: hx L partial mastectomy 2013 and 34 rounds radiation and maintained on tamoxifen follows with her PCP --> rec f/u with PCP to discuss possibly continued on anastrazole given post- menopausal (6) Hyperlipidemia: Continued atorvastatin (7) Hypertension: Continue metoprolol tartrate Hold lisinopril due to low normal BP/poor PO intake rn intensive care unit --> appetite improved prior to discharge and BP was 115/66 in the AM and held but given improvement in appetite/eating planned to resume usual dose 02/25 (8) Coronary artery disease: History of cardiac stent 2017 or 2018 - [facility] Carmen Follows with dr Cee in [place] reported however patient reports he retired and she hasn't been followed by anyone yet but rec having ref from PCP for new chef locally Had previously been on plavix/asa following her stent but reported after last rx this was never continued and she stopped this but was on Plavix >1 year Remains on ASA 81mg daily Continued metoprolol, atorvastatin Lisinopril to resume 02/25 No CP/SOb, however of note did not have symptoms prior to needing stent and had cath after abn stress echo rec'd f/u with her PCP to get established with new cards for monitoring/follow up (9) Liver cirrhosis: Notes history of this without need for paracentesis not on any spironolactone/lasix LFTs wnl on admission, INR 1.2 and no bleeding (10) Anemia: Longstanding, takes 1 tablet PO replacement iron daily at home per patient. Denied use of NSAIDs. no blood in stool (outside of reported hemorrhoids) hgb 8.1 on am labs, checked iron panel given borderline low MCV Iron 16, trans% 5 Venofer IV ordered 300mg IV x 3 doses completed 02/23 B12 checked as well given balance/memory and on metformin (also w/ hx low per patient) and was borderline low and IM injections while inpatient, PO at d/c hgb stable and improved on repeat, no SOB/CP Hx cirrhosis * c-scope ~ 3 years ago, next due 2 years * EGD 202 w/ nonbleeding esophageal varicies and portal gastropathy * --> rec'd f/u GI at discharge repeat EGD this year as overdue for screening and continued surveillance (11) Hypomagnesemia: checked given SOB w/ ambulation/cramping and prior notes from Oct w/ admission for borderline sepsis at [facility] w/ fall and low magnesium had been placed on daily supplementation but checked Mag level, low 1.5 and IV replacement ordered while inpatient with repeat stable Continue PO slow mag at d/c as already taking Total Time Total Time Spent Total Time Spent (In Minutes): 60 Discharge Plan Discharge Items Patient Disposition: Home - Home Health Services Reason For Visit: UTI, CYSTITIS Discharge Diagnosis: Multi Drug Resistance UTI Goals: You have been hospitalized for an acute medical problem. During your stay at [facility], we have made an effort to correct the problem that brought you to the hospital while keeping you as comfortable as possible. Medications were used to bring your condition under control and your discharge instructions will include directions for any medications you should take after leaving the hospital. Please make sure you see your Primary Care Provider as part of your follow up plan. Activity: Resume your previous activity Non-emergency contact: Primary Care Provider, Specialist, Transportation Security Screener and Urologist Call non-emergency contact if: you have any medication questions, your symptoms worsen, your pain is not controlled and you have a fever Follow-up/Referrals: Sathish Bolden MD [Physician] - (2 weeks) Rosalinda Loaz DO [Physician] - (1 month, need EGD for monitoring varicies) Jenna Murray CRNP [Primary Care Provider] - Adrianna Zhang DO [Physician] - (A referral has been placed to Dr. Zhang on your behalf, for an outpatient infectious disease consult. This office should call you directly to schedule an appointment. If you do not hear from them within one week of discharge, please call their office to follow up.) Diet: Carb Consistent or DM2 and Heart Healthy Addtl Attending Provider Instructions: You have been hospitalized for a urinary tract infection. This has been resistant to oral antibiotics on culture results and you have been placed on IV Ertapenem once daily to complete 14 day total treatment. You have had an US guided IV placed and home infusion company will be there tomorrow to continue daily treatments. You will need follow up with Urology for outpatient cystoscopy and are being arranged follow up with infectious disease at discharge. We did check iron levels given fatigue and these were low. We gave iron replacement while inpatient to complete dosing and your hemoglobin has improved and remained stable. You should also follow up with GI as you are overdue for routine screening for EGD to monitor for esophageal varices. Your thyroid level was elevated and as discussed you should continue your usual dose but this needs to be taken in the morning on an empty stomach BEFORE OTHER MEDICATIONS. Your primary care should repeat your thyroid levels in 4-6 weeks to ensure these levels are normalized. Your blood sugars have been on the lower end while in the hospital and we have reduced your evening dose of insulin to 5 units at night and you can continue the metformin but should continue to monitor your sugars at home as your appetite increases and contact your doctor for sugars over 200 to see about increasing this back up, however would like to prevent any hypoglycemia which could cause worsening symptoms at home. We also checked a B12 level which can be low in patients taking metformin as well as lack of B12 in diet and you have been given injections while in the hospital and should continue 1000mcg daily. This will help with memory, balance, coordination, neuropathy and is important in helping to make new red blood cells which is important given your anemia (which has improved since being in the hospital). You should follow up with your primary care provider in the next 7-10 days to monitor your progress after discharge. You should also discuss possibly switched from the tamoxifen to anastrazole given you are post-menopausal. Please return to the ER with any worsening symptoms, fever, inability to keep up with oral intake, or for any other symptoms concerning for you. It has been a pleasure being a part of the medical team providing for you. Take care! Pending Studies at Discharge: Yes Studies:: Blood cultures no growth to date Stand-Alone Forms: My [facility] [employer], Smoking Cessation Medications and DC Order Prescriptions: New ertapenem [Invanz] 1 gram recon soln 1 g IV DAILY 11 Days Qty: 11 RF: 0 phenazopyridine [Pyridium] 100 mg tablet 100 mg PO Q8H PRN (Reason: bladder spasm or dysuria) Qty: 14 RF: 0 cyanocobalamin (vitamin B-12) 1,000 mcg capsule 1,000 mcg PO DAILY Qty: 30 RF: 0 Continued lisinopril 10 mg Tablet 10 mg PO HS RF: 0 atorvastatin [Lipitor] 40 mg Tablet 40 mg PO HS RF: 0 metoprolol succinate 50 mg Tablet Extended Release 24 Hr 50 mg PO BID RF: 0 aspirin 81 mg Tablet,Chewable 81 mg PO HS RF: 0 metformin 500 mg Tablet Extended Release 24 Hr 1,000 mg PO BID RF: 0 tamoxifen 20 mg Tablet 20 mg PO QPM RF: 0 cholecalciferol (vitamin D3) [Vitamin D3] 1,000 unit Capsule 1,000 unit PO QAM RF: 0 omeprazole 20 mg Tablet,Delayed Release (Dr/Ec) 20 mg PO HS RF: 0 levothyroxine 112 mcg Capsule 112 mcg PO QAM RF: 0 Slow-Mag 71.5 mg Tablet,Delayed Release (Dr/Ec) 71.5 mg PO QAM RF: 0 calcium phosphate-vitamin D3 [Citracal-D3 Gummies] 250 mg calcium- 500 unit Tablet,Chewable 1 tab PO QAM RF: 0 Changed Levemir FlexTouch U-100 Insuln 100 unit/mL (3 mL) Insulin Pen 5 unit SUBCUT HS Qty: 0 RF: 0 Discontinued sulfamethoxazole-trimethoprim 800-160 mg tablet 1 tab PO BID RF: 0 Discharge Orders: Discharge Order (Routine); Ordered 02/24/22 Ordered By: Nathaly Jasmine/Other Patient Handouts: Managing Type 2 Diabetes Admission Data Admit Date/Time: 02/22/22 16:03 Attending Provider: Brittney Kang Admit Provider: Gomez Costa Primary Care Provider: Jenna Murray Other Providers: Ashu Torres Other Interventions: Discharge Summary Assessment (RN) Last Done: 02/24/22 10:42 Supervising Physician Co-Signing Physician Notes PA Supervision Note: I did not personally see or examine the patient today as patient was discharged just before I came to see her. I actually saw her being wheeled into the elevator and she appeared well. I verified all chung points of TOMI Christiansen's assessment and plan with the following exceptions/additions: None Coding Level of Care Code D/C DAY MANAGEMENT >30 MINS Diagnoses Recurrent UTI N39.0 Hypothyroidism E03.9 Diabetes mellitus, type 2 E11.9 GERD (gastroesophageal reflux disease) K21.9 Hx of breast cancer Z85.3 Hyperlipidemia E78.5 Hypertension I10 Coronary artery disease I25.10 Liver cirrhosis K74.60 Anemia D64.9 Anemia type: unspecified type Hypomagnesemia E83.42
[2022-02-24] MEDS ORDERED: lisinopril 10 MG TAB PO SCH (09:00)
[2022-02-24] MEDS: INSULIN ASPART PER UNIT SC SCH (10:05)
[2022-02-24] MEDS: METOPROLOL SUCC 50MG EXT REL TAB PO SCH (10:06)
[2022-02-24] MEDS: CYANOCOBALAMIN 1000 MCG/ML VIAL IM SCH (10:07)
[2022-02-24] MEDS: CHOLECALCIFEROL 1,000 UNITS 25 MCG TAB PO SCH (10:07)
[2022-02-24] MEDS: MAGNESIUM CHLORIDE W/CALCIUM 64MG DELAYED REL TAB PO SCH (10:07)
[2022-02-24] MEDS: PHENAZOPYRIDINE HCL 200 MG TAB PO PRN (10:13)
[2022-02-24] MEDS: ERTAPENEM SODIUM 1,000 MG in SYRINGE 0 ML IV SCH (11:29)
== END 2022-02-24 12:13 | disposition home health service (06) | DRG 690 ==
LOC: ED 14:35 → 3N 14:35 → SUATTDRO 18:26 → 3N 20:54

== ENCOUNTER 2023-11-27 07:40 | Observation (INO) ==
--- NOTE | 2023-10-30 13:08 | PAT Medication Instructions ---
Medication Instructions Date of Service October 30, 2023 Home Medications Medication Instructions Recorded oxycodone 5 mg tablet 5 mg PO Q6 PRN pain #20 tabs 08/20/23 aspirin 81 mg chewable tablet 81 mg PO HS atorvastatin 40 mg tablet (Lipitor) 40 mg PO HS cholecalciferol (vitamin D3) 25 mcg (1,000 unit) capsule (Vitamin D3) 1,000 unit PO QAM metformin 500 mg tablet,extended release 24 hr 1,000 mg PO BID metoprolol succinate 50 mg tablet,extended release 24 hr 50 mg PO BID lisinopril 10 mg tablet 10 mg PO HS cyanocobalamin (vitamin B-12) 1,000 mcg capsule 1,000 mcg PO QAM pantoprazole 40 mg tablet,delayed release 40 mg PO QAM ferrous fumarate-vitamin C 200 mg (66 mg iron)-125 mg tablet 1 tab PO QAM glipizide 5 mg tablet 5 mg PO QAM levothyroxine 150 mcg tablet 150 mcg PO QAM oxycodone 5 mg tablet 5 mg PO Q6 PRN fluocinonide 0.05 % topical ointment 1 applic topical BID PRN magnesium 200 mg tablet 400 mg PO BID methenamine hippurate 1 gram tablet 1 g PO BID ASK your prescriber and surgeon aspirin 81 mg chewable tablet 81 mg PO HS STOP taking 24 hours before surgery fluocinonide 0.05 % topical ointment 1 applic topical BID PRN DO NOT take the morning of surgery cholecalciferol (vitamin D3) 25 mcg (1,000 unit) capsule (Vitamin D3) 1,000 unit PO QAM metformin 500 mg tablet,extended release 24 hr 1,000 mg PO BID cyanocobalamin (vitamin B-12) 1,000 mcg capsule 1,000 mcg PO QAM ferrous fumarate-vitamin C 200 mg (66 mg iron)-125 mg tablet 1 tab PO QAM glipizide 5 mg tablet 5 mg PO QAM magnesium 200 mg tablet 400 mg PO BID Take morning of surgery With a small sip of water, OTHERWISE NOTHING TO EAT OR DRINK AFTER MIDNIGHT: metoprolol succinate 50 mg tablet,extended release 24 hr 50 mg PO BID pantoprazole 40 mg tablet,delayed release 40 mg PO QAM levothyroxine 150 mcg tablet 150 mcg PO QAM oxycodone 5 mg tablet 5 mg PO Q6 PRN(if needed) methenamine hippurate 1 gram tablet 1 g PO BID Take evening before surgery atorvastatin 40 mg tablet (Lipitor) 40 mg PO HS metformin 500 mg tablet,extended release 24 hr 1,000 mg PO BID metoprolol succinate 50 mg tablet,extended release 24 hr 50 mg PO BID lisinopril 10 mg tablet 10 mg PO HS oxycodone 5 mg tablet 5 mg PO Q6 PRN(if needed) magnesium 200 mg tablet 400 mg PO BID methenamine hippurate 1 gram tablet 1 g PO BID Other Notes If you have any questions please call us at [phone] or [phone] or [phone] or [phone]
--- NOTE | 2023-11-04 10:21 | Anesthesiology Consultation ---
Date of Service November 04, 2023 Assessment & Plan (1) Encounter for pre-operative examination: - check BSG am DOS. - 10/14 systolic murmur, no murmur noted at last cardio visit. Patient and daughter advised cardiology clearance will be needed prior to surgery. Case discussed in detail with Dr. Tubbs and he agreed with needing cardiology clearance, but not specific testing request by anesthesia-to cardiology discretion. We will also request nuclear portion of 02/11/23 stress test. Optimization form to be faxed to cardiology. - will request 10/29/23 Dr. Eloy Dickey PCP and most recent Dr. Rylie Ca [facility] GI office notes. - left arm restriction. - cardiology office visit 05/20/23: "...coronary artery disease...followup...feeling well...s/p PCI to LAD in 2017. Had atypical angina with L scapular and shoulder pain. LC stress test to show small apical septal infarct with mild kelvin-infarct ischemia. Pain had resolved...continued to observe for now...follow up 6 months..." Chart Review Chart Review: Pending: Refer to Additional Notes / Consult section and Patient seen in Pre Admission Testing Teaching & Discussion Pre-Anesthesia Teaching/Discussion Notes: Instructed NPO after midnight before surgery, except medications with 15 cc of water. Medication instructions provided according to the PAT guidelines. History Surgery Operation Date: 11/27/23 10:15 Proposed Procedures p Left Hip Endoscopic Bursectomy, - Sherman Rodas MD s Possible Open Gluteal Repair, Allograft Augmentation - Sherman Rodas MD Height/Weight Height: 5 ft 5 in Weight: 68.492 kg Allergies Allergy/AdvReac Type Severity Reaction Status Date / Time dapagliflozin [From [facility]] Allergy Severe urinary Verified 10/30/23 09:18 burning fentanyl AdvReac Severe hallucinati Verified 11/04/23 10:27 ons morphine AdvReac Severe MIGRAINES/h Verified 10/30/23 09:17 allucinatio ns Medications Home Medications Medication Instructions Recorded Confirmed Last Taken aspirin 81 mg chewable tablet 81 mg PO HS 10/05/18 10/30/23 08/19/23 atorvastatin 40 mg tablet (Lipitor) 40 mg PO HS 10/05/18 10/30/23 08/19/23 cholecalciferol (vitamin D3) 25 1,000 unit PO QAM 10/05/18 10/30/23 08/19/23 mcg (1,000 unit) capsule (Vitamin D3) metformin 500 mg tablet,extended 1,000 mg PO BID 10/05/18 10/30/23 08/19/23 release 24 hr metoprolol succinate 50 mg 50 mg PO BID 10/05/18 10/30/23 08/19/23 tablet,extended release 24 hr lisinopril 10 mg tablet 10 mg PO HS 05/02/20 10/30/23 08/19/23 cyanocobalamin (vitamin B-12) 1,000 mcg PO QAM 09/30/22 10/30/23 08/19/23 1,000 mcg capsule pantoprazole 40 mg tablet,delayed 40 mg PO QAM 09/30/22 10/30/23 08/19/23 release ferrous fumarate-vitamin C 200 mg 1 tab PO QAM 08/15/23 10/30/23 08/19/23 (66 mg iron)-125 mg tablet glipizide 5 mg tablet 5 mg PO QAM 08/15/23 10/30/23 08/19/23 levothyroxine 150 mcg tablet 150 mcg PO QAM 08/15/23 10/30/23 08/19/23 oxycodone 5 mg tablet 5 mg PO Q6 PRN pain #20 tabs 08/20/23 10/30/23 Unknown fluocinonide 0.05 % topical 1 applic topical BID PRN prn 10/30/23 10/30/23 Unknown ointment magnesium 200 mg tablet 400 mg PO BID 10/30/23 10/30/23 Unknown methenamine hippurate 1 gram tablet 1 g PO BID 10/30/23 10/30/23 Unknown Past Medical History Medical History (Updated 11/04/23 @ 10:37 by Xi Dougherty PA-C) Anemia Chronic back pain Chronic nasal congestion denies change or worsening Coronary artery disease JOSE to pLAD 2017 Diabetes mellitus, type 2 GERD (gastroesophageal reflux disease) controlled, stable per pt Hearing loss Hiatal hernia Hx of breast cancer left-2012 - s/p 34 session of radiation Hx of migraines "None since 1993" Hx of myocardial infarction patient states she was unaware of [place], she noticed it in her health records Hx of recurrent urinary tract infection stable, follows with Dr Bolden Hyperlipidemia Hypertension controlled, stable per pt Hypomagnesemia On supplement Hypothyroidism Irregular heart beat Heart skip a beat occasionally per patient- no hx of arrhythmia documented Limb alert care status left arm Liver cirrhosis Neurodermatitis right wrist, applying ointment as advised per pt Pancreatic cyst Under observation Vertigo chronic, infrequent, denies change or worsening with positional changes Patient denies h/o stroke, seizures, heart failure, blood clots/DVTs or blood transfusions. Exercise / Class Metabolic Activity III < 4 Walking/Shop/Light housework (ambulates with cane, denies chest discomfort or shortness of breath with usual activities) Past Family History Family History Mother Diabetes mellitus, type 2 Other No family history of adverse response to anesthesia Past Surgical History Surgical History History of cardiac cath ~2016/2017, [facility] History of carpal tunnel release right History of cataract surgery right and left History of colonoscopy History of ERCP History of esophagogastroduodenoscopy (EGD) History of heart artery stent one stent 2016 or 2018 - [facility]; used to f/u dr elizabeth, looking for new cardio. History of lumbar fusion History of open reduction and internal fixation (ORIF) procedure right leg ORIF History of total hysterectomy with bilateral salpingo-oophorectomy (BSO) Hx laparoscopic cholecystectomy Hx of arthroscopy of shoulder left Hx of hernia repair umbilical x2 Hx of partial mastectomy left breast S/P epidural steroid injection also-09/23/22, cooled radio freq. denervation at [place] Past Anesthesia History No Hx of Anesthesia Complications and No Family Hx of Anesthesia Complications History of PONV No Hx of PONV and No Hx of Motion Sickness Social History Smoking Status: Never smoker Do You Dip or Chew Tobacco: No Hx Alcohol Use: No Hx Substance Use: No substance use type: does not use Review of Systems Patient denies chest pain, shortness of breath, dyspnea on exertion, snoring, witnessed apneas, fever, chills, cough, wheezing, or palpitations. Physical Exam Vital Signs Vitals BP 138/70 P 74 TEMP 97.9 SP02 95% on RA RESP 18 Physical Patient resting comfortably in chair in no acute distress, alert and oriented, responding appropriately throughout visit Full cervical extension range of motion without pain TMD 3.5 finger breadths Mallampati Score 2 Dentition: edentulous, full upper and lower dentures Lungs: normal respiratory effort. Good air movement, clear throughout to auscultation, no adventitious breath sounds Cardiac: regular rate and rhythm, no murmurs noted Carotid arteries: negative bruit bilat Lab Results Anesthesia Preop Results Results Anesthesia Widget: WBC 6.95 K/ul (4.8-10.8) 11/04/23 Hgb 12.6 g/dl (12.0-16.0) 11/04/23 Hct 37.8 % (37.0-47.0) 11/04/23 Plt 170 K/uL (130-400) 11/04/23 Na 139 mmol/L (136-145) 11/04/23 K 4.0 mmol/L (3.5-5.1) 11/04/23 Cl 104 mmol/L (98-107) 11/04/23 CO2 27 mmol/L (21-32) 11/04/23 BUN 11 mg/dl (6-23) 11/04/23 Creat 0.58 mg/dl (0.6-1.2) L 11/04/23 Glucose Level 161 mg/dl (70-99(Fasting)) H 11/04/23 HA1c 6.4 % (4.5-5.6) H 11/04/23 Testing Electrocardiogram Date: 01/27/23 NSR, rate 71 bpm PACs Nonspecific T abnormality Echocardiogram Date: 01/30/22 EF 55-60% Normal Lv wall motion Severely dilated LA Mildly dilated RA Severely calcified mitral valve, moderately thickened leaflets; no evidence of stenosis Aortic valve thickening, consistent with sclerosis; no evidence of stenosis Aortic root is mildly dilated at 37 mm Stress Test Date: 02/11/23 Pharmacologic MPHR 63% Prior small apical septal infarction with mild kelvin-infarct ischemia EKG not indicative of ischemia No transient ischemic dilatation EF 74%
[~2023-11-27 07:40] MED LIST changes: -ASPI81TA28 PO; -ATOR-24 PO; +BUPIVACAINE 0.5 % 5 MG/1 ML PF 10ML VIAL ONE; -CHOL1000 PO; -CLOP1TAB15 PO; -CZR50 PO; -ERGO500037 PO; -HYDR-5688 PO; -INSU1INJ33 SQ; -LEVO150T9 PO; -MAGN400T6 PO; -METFTAB PO; -METO-217 PO; -NLV/20 PO; -NVLGI/PEN SQ; -OMEG10007 PO; -POLY335019 PO; -PRLSR20 PO; -VENL75CA73 PO
--- NOTE | 2023-11-27 08:20 | History & Physical Report ---
Date of Service November 27, 2023 Assessment & Plan (1) Tear of left gluteus minimus tendon: (2) Trochanteric bursitis, left hip: Plan Proceed as planned with left hip endoscopic bursectomy, likely open gluteal tendon repair, possible allograft augmentation. Informed consent reviewed and confirmed. Patient plans to stay tonight and see how she does with physical therapy. History of Present Illness Chief Complaint: Left hip pain Primary Care Provider: Gera Pineda MD 83-year-old female presents this morning for surgery that we have planned since October 27, 2023. There have been no changes to her health history. The pain is still disabling. She has failed extensive nonoperative management. She had seen physical therapy in practice with a walker. Allergies Allergy/AdvReac Type Severity Reaction Status Date / Time dapagliflozin [From [facility]] Allergy Severe urinary Verified 11/27/23 08:16 burning fentanyl AdvReac Severe hallucinati Verified 11/27/23 08:16 ons morphine AdvReac Severe MIGRAINES/h Verified 11/27/23 08:16 allucinatio ns Home Medications Medication Instructions Recorded Confirmed Type aspirin 81 mg chewable tablet 81 mg PO HS 10/05/18 10/30/23 History atorvastatin 40 mg tablet (Lipitor) 40 mg PO HS 10/05/18 10/30/23 History cholecalciferol (vitamin D3) 25 1,000 unit PO QAM 10/05/18 10/30/23 History mcg (1,000 unit) capsule (Vitamin D3) metformin 500 mg tablet,extended 1,000 mg PO BID 10/05/18 10/30/23 History release 24 hr metoprolol succinate 50 mg 50 mg PO BID 10/05/18 10/30/23 History tablet,extended release 24 hr lisinopril 10 mg tablet 10 mg PO HS 05/02/20 10/30/23 History cyanocobalamin (vitamin B-12) 1,000 mcg PO QAM 09/30/22 10/30/23 History 1,000 mcg capsule pantoprazole 40 mg tablet,delayed 40 mg PO QAM 09/30/22 10/30/23 History release ferrous fumarate-vitamin C 200 mg 1 tab PO QAM 08/15/23 10/30/23 History (66 mg iron)-125 mg tablet glipizide 5 mg tablet 5 mg PO QAM 08/15/23 10/30/23 History levothyroxine 150 mcg tablet 150 mcg PO QAM 08/15/23 10/30/23 History oxycodone 5 mg tablet 5 mg PO Q6 PRN pain #20 tabs 08/20/23 10/30/23 Rx fluocinonide 0.05 % topical 1 applic topical BID PRN prn 10/30/23 10/30/23 History ointment magnesium 200 mg tablet 400 mg PO BID 10/30/23 10/30/23 History methenamine hippurate 1 gram tablet 1 g PO BID 10/30/23 10/30/23 History Wheelchair (Manual) #1 ea 11/24/23 Rx Past Med/Surg History Medical History Neurodermatitis right wrist, applying ointment as advised per pt Chronic nasal congestion denies change or worsening Vertigo chronic, infrequent, denies change or worsening with positional changes Limb alert care status left arm Hearing loss Hx of recurrent urinary tract infection stable, follows with Dr Bolden Hx of myocardial infarction patient states she was unaware of [place], she noticed it in her health records Liver cirrhosis Irregular heart beat Heart skip a beat occasionally per patient- no hx of arrhythmia documented Hx of migraines "None since 1993" Hypomagnesemia On supplement Coronary artery disease JOSE to pLAD 2016 Chronic back pain Hiatal hernia Pancreatic cyst Under observation GERD (gastroesophageal reflux disease) controlled, stable per pt Hypothyroidism Diabetes mellitus, type 2 Hx of breast cancer left-2012 - s/p 34 session of radiation Anemia Hyperlipidemia Hypertension controlled, stable per pt Surgical History Hx of partial mastectomy left breast History of lumbar fusion S/P epidural steroid injection also-09/23/22, cooled radio freq. denervation at [place] History of esophagogastroduodenoscopy (EGD) History of ERCP History of cardiac cath ~, [facility] History of colonoscopy Hx of arthroscopy of shoulder left History of carpal tunnel release right History of open reduction and internal fixation (ORIF) procedure right leg ORIF Hx of hernia repair umbilical x2 Hx laparoscopic cholecystectomy History of total hysterectomy with bilateral salpingo-oophorectomy (BSO) History of cataract surgery right and left History of heart artery stent one stent 2017 or 2018 - [facility]; used to f/u chirag almaraz for new cardio. 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 Physical Exam Left hip: No changes to exam. No skin compromise Constitutional WD/WN, vitals as above Respiratory normal respiratory effort; no respiratory distress Cardiovascular Extremities: normal capillary refill; no edema Chest (Breasts) Chest: normal inspection of chest Skin no rashes, warm and dry Psychiatric A+Ox3, euthymic affect Results & Data Results & Data Laboratory Results . Diagnostic Findings MRI shows gluteus medius tear with extensive bursitis PG Care Time/CCT Total # of Minutes Spent Total Time Spent with Patient: Total time spent is greater than 50% in coordination of care (as documented) at patient's floor/unit and/or counseling patient: Coding Level of Care Code None Diagnoses Tear of left gluteus minimus tendon S76.012A Trochanteric bursitis, left hip M70.62
[2023-11-27] MEDS ORDERED: ONDANSETRON INJ 2 MG/ML 2 ML VIAL IV PRN ×2 (08:31→13:10)
[2023-11-27] MEDS ORDERED: ePHEDrine sulfate 50 MG/ML AMP IV PRN (08:31)
[2023-11-27] MEDS ORDERED: fentaNYL citrate PF 100 MCG/2 ML VIAL IV PRN (08:31)
[2023-11-27] MEDS ORDERED: ATROPINE SULFATE 0.1 MG/ML 10ML SYR IV PRN (08:31)
[2023-11-27] MEDS: LR 60ML/HR IV SCH (08:43)
[2023-11-27] MEDS: ACETAMINOPHEN 500 MG TAB PO SCH ×2 (08:44→15:08)
[2023-11-27] MEDS: LR 15ML/HR IV SCH (08:44)
[2023-11-27] MEDS ORDERED: MIDAZOLAM HCL 1 MG/ML 2ML VIAL ONE (09:01)
[2023-11-27] MEDS ORDERED: DEXAMETHASONE SOD INJ 4 MG/ML VIAL ONE ×2 (09:01→11:14)
[2023-11-27] MEDS ORDERED: PROPOFOL IV EMULSION 10 MG/ML 20 ML VIAL IV ONE (09:01)
[2023-11-27] MEDS ORDERED: LIDOCAINE 2% 2 ML VIAL/AMP(20MG/ML) INFIL ONE (09:01)
[2023-11-27] MEDS ORDERED: fentaNYL citrate PF 100 MCG/2 ML VIAL ONE (09:01)
[2023-11-27] MEDS ORDERED: ROCURONIUM BROMIDE 10 MG/ML 5 ML VIAL IV ONE ×2 (09:01→13:56)
[2023-11-27] MEDS ORDERED: ONDANSETRON INJ 2 MG/ML 2 ML VIAL ONE (09:01)
[2023-11-27] MEDS: TRANEXAMIC ACID 1,000 MG **IV Pre-op IV SCH (10:02)
[2023-11-27] MEDS: ceFAZolin 2000MG 2,000 MG/15 ML SYR IV SCH ×2 (10:05→19:20)
[2023-11-27] MEDS ORDERED: PHENYLEPHRINE 100MCG/ML 10ML SYR IV ONE (11:13)
[2023-11-27] MEDS ORDERED: ePHEDrine sulfate 50 MG/ML AMP ONE (11:13)
[2023-11-27] MEDS: BUPIVACAINE 0.25% PF 30 ML VIAL ONE (11:30)
[2023-11-27] MEDS: BUPIVACAINE/EPINEPHRINE 0.5% MPF 1:200,000 30 ML VIAL ONE (11:30)
[2023-11-27] MEDS: EPINEPHrine INJ 1 MG/ML AMP ONE (11:31)
[2023-11-27] MEDS ORDERED: SUGAMMADEX SODIUM 200 MG/2 ML VIAL IV ONE (11:38)
[2023-11-27] MEDS ORDERED: diphenhydrAMINE 50 MG/ML VIAL IV PRN (13:10)
[2023-11-27] MEDS ORDERED: MAGNESIUM HYDROXIDE SUSP 30 ML UDC PO PRN (13:10)
[2023-11-27] MEDS ORDERED: NALOXONE HCL 0.4 MG/1 ML VIAL/CARP IV PRN (13:10)
[2023-11-27] MEDS ORDERED: bisacodyL 10 MG SUPP PR PRN (13:10)
[2023-11-27] MEDS ORDERED: METOCLOPRAMIDE HCL INJ 5 MG/ML 2 ML VIAL IV PRN (13:10)
[2023-11-27] MEDS ORDERED: PHARMACY GLYCEMIC MGMT CONSULT PRN (13:15)
--- NOTE | 2023-11-27 13:27 | Operative Report ---
PG Post Operative Report Pre & Post Diagnosis Operation Date: 11/27/23 09:15 Pre-Op Diagnosis: Left Hip Tear of Left Gluteus Medius and Minimus Tendon, Trochanteric Bursitis Post-Op Diagnosis: Left Hip Tear of Left Gluteus Medius and Minimus Tendon, Trochanteric Bursitis I identified the patient and participated in the time-out.: Yes Procedure Operation Date: 11/27/23 09:15 Actual Procedures p Left Hip Endoscopic Bursectomy(Left) - Sherman Rodas MD s Endoscopic Gluteal Repair with Allograft Augmentation(Left) - Sherman Rodas MD Surgeon Sherman Rodas MD Roofer Apprentice Julissa Gallagher PA-C Estimated Blood Loss 10 Findings See Below Full-thickness tear of the gluteus medius and minimus insertion, resulting in exposed trochanteric footprint after minimal debridement. The gluteal tendon was able to reapproximate over the footprint. A knotless, 4 anchor, double row construct was performed using 3 Arthrex 2.6 mm knotless RC fibertacks with tapes brought laterally into 2 Arthrex 4.75 bio composite swivel lock anchors. Due to the condition of the insertional tissue, I opted to perform an allograft augmentation of the repair using the knotless mechanism and a proximal row fiber tacks and lateral fixation with 3.5 mm bio composite push locks, with a suture bridge from the proximal row. Specimens None Anesthesia Type General Complications none Disposition Accompanied Patient To Recovery: No Disposition: Recovery Room Indications 83-year-old female with longstanding laterally based hip pain without Trendelenburg gait presented with persistent signs and symptoms of a gluteal tendon tear. Advanced imaging showed a small tear of the minimus and medius with mild retraction. She had undergone maximal nonoperative treatment, including Tenex debridement and platelet rich plasma injections. We discussed treatment options, and given her failure of nonoperative management, I did offer elective endoscopic or open gluteal tendon repair with trochanteric bursectomy with the possibility of an allograft to augment the repair. We discussed the risks and benefits in detail, as outlined in the preoperative note. She and her family desired to proceed. Informed consent was documented in clinic. Description of Procedure On the day of surgery, the patient was greeted in the preoperative holding area. The informed consent was reviewed and confirmed by myself and the patient. The patient identified the surgical site and was marked by me. The patient was then turned over to anesthesia. The patient was taken the operating place upon the OR table. Anesthesia was induced and the airway was secured. We then positioned in a lateral decubitus position for left hip endoscopic bursectomy. All bony prominences well-padded. We used a beanbag with axillary roll. Surgical timeout was called by the circulating nurse and verified all present. Antibiotics have been infused and equipment was available and functional. We proceeded by sterilizing the hip and then insufflating the greater trochanteric extra compartmental space using a spinal needle and 60 cc of quarter percent Marcaine solution with epinephrine. The operative extremity was then prepped and draped in usual sterile fashion. Another timeout was called to ensure readiness. Then proceeded by creating a proximal and distal anterolateral peritrochanteric portasl using a spinal needle at the vastus ridge for guidance. The arthroscopic trocar was then used to access the space under the IT band which was palpable using the proximal portal. We then made a stab incision in the IT band and entered the extra compartmental space using the Arthrex torpedo motorized shaver. Bursal tissue was excavated using a motorized shaver. There was abundant bursitis that was debrided using a combination of motorized shaver and electrocautery wand. We obtain visualization about the vastus lateralis and gluteal tendon insertion. All bursal and inflammatory tissue was debrided extensively. The gluteal tendon insertion was identified. The insertional tissue on the anterior half of the trochanteric footprint was atrophied and torn. There was minimal retraction. Degenerative tissue was debrided. There was adequate remnant tendon for reapproximation for an endoscopic repair. A thorough bursectomy was carried out. Visualization was switched from proximal and distal to allow full visualization exploration. We then visualized from the proximal portal and used the electrocautery from the distal portal performed in line intraportal incision in the IT band for a minor release. Hemostasis was achieved using electrocautery. After the thorough bursectomy, portals were established for the endoscopic repair. The distal anterolateral portal was already established. This was cannulated using Arthrex passport. The distal posterolateral portal was established using a spinal needle for localization. This was established using the switching stick. The camera was then transferred to the posterior lateral portal so that visualization was established here. The scope was easily able to be passed underneath the tendon remnant and visualize the footprint. The tear was developed by debriding degenerative tissue, and mobilizing the gluteus medius musculature from the underside of the TFL and gluteus newton. The joint capsule seem to remain intact. Motorized shaver was used to bur down enthesophyte formation at the superior aspect of the intertrochanteric ridge and along the footprint. The minimus and medius tendon had a near full thickness disruption which was mobilized. It did reach the footprint at neutral abduction. There was also some medius tendon left at the footprint which was nonviable. The medius tendon was mobilized on the superficial and deep sides. There sufficient tendon quality to repair onto the bare footprint. Once the bony bed was prepped, the proximal row of our fixation was inserted using peritrochanteric portals localized by the spinal needle. We chose 2.6 Arthrex knotless rotator cuff fiber tack anchors. A posterior proximal anchor was placed in a similar fashion in the posterior superior aspect of the gluteus footprint. Purchase was strong. An additional medial row anchor was placed with good fixation. These were passed trans tendon. There appeared to be enough room and need for an additional anterior proximal anchor. This was placed and passed independently using the fiber link in scorpion. The lateral row was then planned. Using the central portal, and arthroscopic punch was introduced for the 4.75 swivel lock. Locations were identified for the anterolateral and posterior lateral anchors. Knotless fiber tack suture tape tails were then brought to the lateral anchors creating a standard crossing configuration. Lateral anchors were 4.75 bio composite swivel locks which obtain good purchase. The knotless mechanism on these lateral anchors were used to retention some of the suture lines of the previously fixed tape. I also grabbed the lateral edge of the cuff tissue to further fix it with the knotless lateral row. There was excellent footprint compression and coverage. Because of the condition of the degenerative tissue, I felt that an allograft would help reinforce the repair and increase the likelihood of success. For that reason we prepared for an allograft augmentation using Arthrex Geronimo Flex 0.76 mm thickness in the standard shoulder graft measuring 25 x 20 mm. The knotless repair stitch from the proximal row was pulled through the passport. These were passed in horizontal mattress fashion to the superior edge of the graft. These knotless mechanisms were sent to dragged the graft into position. 0 fiber link sutures were then placed at the distal corners for fixation lateral anchors. The knotless mechanism was then cinched gradually while the graft was placed in through the Yeni using an arthroscopic grasper. We however the graft over the repair site. We then used the knotless mechanism to fix approximately. The graft was trampolines over the repair site using very lateral fiber lines. The repair stitch on the proximal row was then taken in a crossing fashion down to the distal lateral corners and fixed with a 3.5 mm bio composite push lock with the fiber link. This was repeated for the other proximal row anchor and fiber link to complete a suture bridge fixation with a double row of our Arthroflex graft over the repair site. Hip was taken through range of motion. The graft was stable. The knotless mechanism from the anterior proximal anchor was removed as it was not needed. The peritrochanteric space was then decompressed of arthroscopic fluid using suction through the cannula. Wounds were approximate using 3-0 Monocryl buried suture in the dermal layer of each portal position. This was backed up by Steri-Strips. Wounds were then dressed with sterile Xeroform, sterile gauze, ABDs, and contained by the Ioban dressing. A compressive flex master Adrian wrap was placed from the thigh and around the waist. The patient tolerated the procedure well, was extubated the operating room with out complication, and transferred to the PACU in stable condition. Disposition: The patient will be discharged home when same-day criteria are met. Partial weightbearing will be mandatory for the first 6 weeks. Crutches and/or walker can be used. DVT prophylaxis will be daily aspirin beginning on postop day 1. Physical therapy can begin immediately using the [facility] gluteus medius tendon repair protocol, modified to partial weightbearing as she is unable to comply with flatfoot weightbearing. Routine postop pain medications were prescribed. Physician travel assistant attestation: Julissa Gallagher PA-C was present and scrubbed for the duration of the case. Skilled assistance was essential to prepping/draping, patient positioning, retraction, suture management, and assistance with wound closure. Skilled assistance was critical for leg positioning, suture management, and anchor placement for the gluteal tendon repair. I attest to the content of the Intraoperative Record and any orders documented therein. Any exceptions are noted below.
[2023-11-27] MEDS ORDERED: oxyCODONE HCL IR 5 MG TAB (IMMEDIATE RELEASE) PO PRN (14:06)
[2023-11-27] MEDS ORDERED: GLUCAGON FOR INJ 1 MG VIAL IM PRN (14:15)
[2023-11-27] MEDS ORDERED: GLUCOSE 40% GEL 15 GM TUBE PO PRN (14:15)
[2023-11-27] MEDS ORDERED: GLUCOSE 10 TAB/TUBE PO PRN (14:15)
[2023-11-27] MEDS ORDERED: DEXTROSE 50% 50 ML SYRINGE IV PRN (14:15)
[2023-11-27] MEDS ORDERED: CARBOHYDRATES FOR HYPOGLYCEMIA PO PRN (14:15)
--- NOTE | 2023-11-27 14:19 | Anesthesiology Progress Note ---
Date of Service November 27, 2023 Anesthesia Post Procedure Vital Signs Vital Signs: Temp Pulse Resp BP Pulse Ox O2 Del Method O2 Flow Rate 11/27/23 13:40 36.5 C 73 14 140/78 93 Room Air 11/27/23 13:30 73 21 132/73 94 Room Air 11/27/23 13:20 74 15 125/67 94 Room Air 11/27/23 13:11 36.3 C L 76 20 121/83 96 Oxymask 5 11/27/23 08:11 36.8 C 70 18 148/85 H 94 Room Air Pain Intensity Left Hip: Pain Intensity: 0 Transfer of Care Handoff Completed per policy Notes Mental Status: alert / awake / arousable Patient Amnestic to Procedure: Yes Nausea / Vomiting: adequately controlled Pain: adequately controlled Airway Patency, RR, SpO2: stable & adequate BP & HR: stable & adequate Hydration State: stable & adequate Anesthetic Complications: no major complications apparent and Pt Satisfied with anesthetic care
--- NOTE | 2023-11-27 14:21 | Pharmacy Report ---
Pharmacy Glycemic Short Note 2 - Date of Service November 27, 2023 - Glycemic Short BSG Results (Last 24 hours): 11/27/23 11/27/23 08:08 13:14 POC Glucose 162 H 135 H OUTPATIENT ANTIDIABETIC REGIMEN: * glipizide 5 mg daily, metformin 1 gm bid ASSESSMENT: * 83 year old now s/p surgery, POD 0 - pharmacy consulted for glycemic management. Patient type 2 diabetic managed only on orals at home. Plan to hold orals and utilize just novolog postop PLAN FOR INPATIENT GLYCEMIC CONTROL: * Hold outpatient oral diabetes medications * Basal insulin * Lantus - hold * Bolus insulin * NovoLog per scale ACHS or Q6hrs while NPO * Goal Range: Low 110 mg/dL - High 140 mg/dL * Correction Factor: 35 mg/dL/unit * Nutritional / Prandial insulin per carb ratio of 1 unit per 11 grams CHO consumed
[2023-11-27] MEDS: SODIUM CHLORIDE 0.9% 1,000 ML IV SCH (15:05)
[2023-11-27] MEDS: INSULIN ASPART PER UNIT CHARGE SC SCH ×2 (17:48→22:20)
[2023-11-27] MEDS: DOCUSATE SODIUM 100 MG CAP PO SCH (19:30)
[2023-11-27] MEDS: ATORVASTATIN 40 MG TAB PO SCH (19:30)
[2023-11-27] MEDS: lisinopril 10 MG TAB PO SCH (19:32)
[2023-11-27] MEDS: METOPROLOL SUCC 50MG EXT REL TAB PO SCH (19:32)
[2023-11-27] MEDS: SENNA 8.6 MG TAB PO SCH (19:32)
[2023-11-27] MEDS ORDERED: metFORMIN HCL ER 500 MG TABCR PO SCH (21:00)
[2023-11-28] MEDS: oxyCODONE HCL IR 5 MG TAB (IMMEDIATE RELEASE) PO PRN (01:19)
[2023-11-28] MEDS: LEVOTHYROXINE SODIUM 150 MCG TABLET PO SCH (06:23)
[2023-11-28] MEDS: MULTIVITAMIN TAB PO SCH (07:48)
[2023-11-28] MEDS: PANTOprazole 40 MG TAB PO SCH (07:48)
[2023-11-28] MEDS: ASPIRIN 325 MG ECTAB PO SCH (07:48)
[2023-11-28] MEDS ORDERED: glipiZIDE 5 MG TAB PO SCH (09:00)
--- NOTE | 2023-11-28 11:58 | Orthopedic Progress Note ---
Date of Service November 28, 2023 Assessment & Plan (1) Tear of left gluteus minimus tendon: (2) Tear of left gluteus medius tendon: (3) Trochanteric bursitis, left hip: (4) Tendinopathy of left gluteus medius: (5) Hip abductor tendinitis: Plan Overall, she is doing quite well today with good pain control to the left hip. She participated well according to her with physical therapy note ambulation and range of motion exercises. She is on aspirin for DVT prophylaxis. She can be discharged home later this morning pending physical therapy formal evaluation. She will follow-up with Dr. Rodas in 2 weeks for postoperative management. Subjective Michaela Art was seen and evaluated this morning resting comfortably in no apparent distress. She notes she has good pain control to the left hip. She notes that she worked with physical therapy and was able to do ambulation and range of motion exercises without significant discomfort. She denies any concerns today. Review of Systems All systems reviewed & are unremarkable except as noted in HPI & below. Physical Exam . On physical examination left hip, dressings are clean, dry, intact. Her leg is out in full extension. She has active plantarflexion dorsiflexion of the left ankle. +2 DP and PT pulses. Less than 2-second capillary refill. Normal sensation. Neurovascular intact. Results & Data Results & Data Laboratory Results . Diagnostic Findings . PG Care Time/CCT Total # of Minutes Spent Total Time Spent with Patient: Total time spent is greater than 50% in coordination of care (as documented) at patient's floor/unit and/or counseling patient: Coding Level of Care Code 58260 Post Operative Follow-Up Diagnoses Tear of left gluteus minimus tendon S76.012A Tear of left gluteus medius tendon, initial encounter S76.012A Encounter type: initial encounter Trochanteric bursitis, left hip M70.62 Tendinopathy of left gluteus medius M67.952 Tendinitis involving left hip abductors M76.892 Laterality: left (2) Tear of left gluteus medius tendon Encounter type: initial encounter Qualified Code(s): S76.012A - Strain of muscle, fascia and tendon of left hip, initial encounter (5) Hip abductor tendinitis Laterality: left Qualified Code(s): M76.892 - Other specified enthesopathies of left lower limb, excluding foot
--- NOTE | 2023-11-28 12:00 | Discharge Summary ---
Date of Service November 28, 2023 Admission HPI (Per Admitting) 83-year-old female presents this morning for surgery that we have planned since October 27, 2023. There have been no changes to her health history. The pain is still disabling. She has failed extensive nonoperative management. She had seen physical therapy in practice with a walker. Admission Exam (Per Admitting) Left hip: No changes to exam. No skin compromise Principal Diagnosis Same as "Discharge Diagnosis" noted below under Discharge Instructions. Discharge Exam . On physical examination left hip, dressings are clean, dry, intact. Her leg is out in full extension. She has active plantarflexion dorsiflexion of the left ankle. +2 DP and PT pulses. Less than 2-second capillary refill. Normal sensation. Neurovascular intact. Discharge Data Procedures Performed Operation Date: 11/27/23 09:15 Actual Procedures p Left Hip Endoscopic Bursectomy(Left) - Sherman Rodas MD s Endoscopic Gluteal Repair, Allograft Augmentation(Left) - Sherman Rodas MD Ordered Studies 11/27/23 05:00 US - OR guided needle placemen Routine Hospital Course (1) Hip abductor tendinitis: Laterality: left Qualified Code(s): M76.892 - Other specified enthesopathies of left lower limb, excluding foot (2) Tendinopathy of left gluteus medius: (3) Tear of left gluteus minimus tendon: (4) Trochanteric bursitis, left hip: (5) Tear of left gluteus medius tendon: Encounter type: initial encounter Qualified Code(s): S76.012A - Strain of muscle, fascia and tendon of left hip, initial encounter Plan On November 27, 2023 Kaelyn arrived at [facility] and underwent a left hip endoscopic bursectomy with gluteal repair using an allograft augmentat ion performed by Dr. Rodas without complications. She had a general anesthetic. Postoperatively, she was started on aspirin for DVT prophylaxis and transferred to the general orthopedic floor in stable condition. Her hospital course was uneventful. On postoperative day #1, her vital signs were stable and her pain was well-controlled. She participated well with physical therapy working on ambulation and range of motion exercises. She was then discharged home in stable condition. She will follow-up in [address] Rodas for postoperative management. PG Care Time/CCT Total # of Minutes Spent Total Time Spent with Patient: Total time spent is greater than 50% in coordination of care (as documented) at patient's floor/unit and/or counseling patient: Discharge Plan Discharge Items Patient Disposition: Home - Home Health Services Reason For Visit: Tear of Gluteus Minimus Tendon, Torchanteric Bursi Discharge Diagnosis: Same Activity: Per Instructions section Non-emergency contact: Surgeon Call non-emergency contact if: your temperature is above 101.5, your wound has increased redness, your wound has increased drainage and your wound pain has increased Follow-up/Referrals: Gera Pineda MD [Primary Care Provider] - Diet: Regular Addtl Attending Provider Instructions: Sherman Rodas MD [facility] Orthopedic [facility] [address] [facility], [place] [address] DISCHARGE INSTRUCTIONS FOR OPEN OR ARTHROSCOPIC GLUTEAL TENDON REPAIR WEIGHTBEARING: Partial weightbearing for 6 weeks Crutches or Walker at all times. Partial (<50%) Weightbearing means may place your foot on the ground, but do not transfer more than 50% of your weight or stride on the leg. HIP MOTION: Try to relax with foot pointed forward. Comfort will be your guide. Physical therapy will work to teach you how to move appropriately. No active hip abduction (moving foot outward or away from body) Avoid active IR (turning foot or knee inward) for 6 weeks. Avoid passive hip adduction (crossing your legs) for 6 weeks. Do not push through pain or pinching. Gradual stretching is chung. WOUND CARE: Leave the dressing in place and keep the area clean and dry. After 3 days, you may remove your dressing. DO NOT REMOVE ANY SUTURES. DO NOT REMOVE THE PAPER TAPE STRIPS THAT ARE CROSSING YOUR INCISION THEY WILL FALL OFF GRADUALLY IN 2-3 WEEKS. After removing your dressing, you may begin to shower. Do not soak the incision. Allow gentle soap and water to run over the wound(s) and pat dry. Please cover the incision(s) with a clean, dry dressing, as needed. Do not use any ointments or topical medications unless directed by your surgeon. Do not submerse the incisions in water no pools, oceans, lakes, jacuzzis, bathtubs, etc for at least 3 weeks. PAIN CONTROL If you had an ANESTHETIC BLOCK, the effects will wear off in 6-12 hours. When you feel sensation returning, be ready with a pain medication. You may experience rebound pain for a few hours before pain subsides. Stay ahead of the pain with your medications. Use the cryocuff as directed, instead of ice. Use for 30 minutes per hour. Do not leave in place longer than 30 minutes, especially when your block is in effect, to prevent frostbite or thermal injury. MEDICATIONS: 1. Oxycodone (OxyIR) 1-2 tablet(s) orally every 6 hours for pain as needed. Use with Tylenol. Begin tapering OxyIR as soon as possible: reduce from 2 to 1 pills per dose, then spread out the doses over greater time intervals, then try to use only for therapy or for comfort while sleeping. Continue to use regular Tylenol until pain subsides. 2. Tylenol (325mg): 3 tablets every 8 hours orally. Regular dosing of Tylenol is an important part of your baseline pain control. Do not taper Tylenol until you have successfully tapered off of regular OxyIR. Do not take more than 3000mg of Tylenol per day. 3. Aspirin 325m tablet orally every day for 6 weeks to reduce the risk of dangerous blood clots. CONSTIPATION: Narcotic pain medications can slow down your digestive track, leading to constipation. Stay hydrated. While taking narcotics, the use of stool softeners is recommended. Two over the counter options are: 1. Colace (100mg): take 1-2 tabs twice daily to avoid constipation from OxyIR or other narcotics. 2. Miralax 1 tablespoon in a glass of water 2 times daily until normal bowel m ovements FOLLOWUP: 1. Ortho Clinic: You should be seen in 10-14 days. Please call immediately to schedule if you do not have an appointment. WHEN TO CALL. If you develop any of the following symptoms, please contact the Orthopedic Clinic at [phone]: Temperature greater than 101 taken twice, difficulty breathing, bleeding, fever and chills, increased pain unrelieved by pain meds, uncomfortable cast or splint, or any other concerns. Pending Studies at Discharge: No Stand-Alone Forms: My [employer], Smoking Cessation Medications and DC Order Prescriptions: New aspirin [Ecotrin] 325 mg Tablet,Delayed Release (Dr/Ec) 325 mg PO QAM 42 Days Qty: 42 0RF oxycodone 5 mg Tablet 5 mg PO Q6 PRN (Reason: pain) Qty: 24 0RF Continued (DME) Wheelchair (Manual) Device See Rx Instructions .MEDSUPPLY Qty: 1 0RF Rx Instructions: As directed lisinopril 10 mg Tablet 10 mg PO HS atorvastatin [Lipitor] 40 mg Tablet 40 mg PO HS metoprolol succinate 50 mg Tablet Extended Release 24 Hr 50 mg PO BID metformin 500 mg Tablet Extended Release 24 Hr 1,000 mg PO BID cholecalciferol (vitamin D3) [Vitamin D3] 1,000 unit Capsule 1,000 unit PO QAM ferrous fumarate-vitamin C 200 mg (66 mg iron)-125 mg Tablet 1 tab PO QAM levothyroxine 150 mcg Tablet 150 mcg PO QAM glipizide 5 mg Tablet 5 mg PO QAM pantoprazole 40 mg tablet,delayed release (DR/EC) 40 mg PO QAM cyanocobalamin (vitamin B-12) 1,000 mcg capsule 1,000 mcg PO QAM methenamine hippurate 1 gram Tablet 1 g PO BID fluocinonide 0.05 % Ointment 1 applic TOPICAL BID PRN (Reason: prn) Patient Comments: apply to wrist as needed magnesium 200 mg Tablet 400 mg PO BID Discontinued oxycodone 5 mg tablet 5 mg PO Q6 PRN (Reason: pain) Qty: 20 0RF aspirin 81 mg Tablet,Chewable 81 mg PO HS Admission Data Admit Date/Time: 11/27/23 13:10 Attending Provider: Sherman Rodas Admit Provider: Sherman Rodas Primary Care Provider: Gera Pineda Other Interventions: Discharge Summary Assessment (RN) Last Done: 11/28/23 09:59
== END 2023-11-28 12:44 | disposition home health service (06) ==
LOC: ASU 07:40 → 3N 07:40
DX: Z79.890 Hormone replacement therapy; E11.9 Type 2 diabetes mellitus without complications; I25.10 Atherosclerotic heart disease of native coronary artery without angina pectoris; Z79.82 Long term (current) use of aspirin; M70.62 Trochanteric bursitis, left hip; Z79.899 Other long term (current) drug therapy; Z88.8 Allergy status to other drugs, medicaments and biological substances; E78.5 Hyperlipidemia, unspecified; K74.60 Unspecified cirrhosis of liver; I10 Essential (primary) hypertension; Z85.3 Personal history of malignant neoplasm of breast; S76.012A Strain of muscle, fascia and tendon of left hip, initial encounter; Z79.84 Long term (current) use of oral hypoglycemic drugs; K21.9 Gastro-esophageal reflux disease without esophagitis; Z88.5 Allergy status to narcotic agent

== ENCOUNTER 2024-08-02 08:09 | Observation (INO) ==
--- NOTE | 2024-06-28 13:02 | PAT Medication Instructions ---
Medication Instructions Date of Service June 28, 2024 Home Medications Medication Instructions Recorded Wheelchair (Manual) #1 ea 11/24/23 oxycodone 5 mg tablet 5 mg PO Q6 PRN pain #24 tabs 11/28/23 atorvastatin 40 mg tablet (Lipitor) 40 mg PO HS cholecalciferol (vitamin D3) 25 mcg (1,000 unit) capsule (Vitamin D3) 1,000 unit PO QAM metformin 500 mg tablet,extended release 24 hr 1,000 mg PO BID metoprolol succinate 50 mg tablet,extended release 24 hr 50 mg PO BID lisinopril 10 mg tablet 10 mg PO HS cyanocobalamin (vitamin B-12) 1,000 mcg capsule 1,000 mcg PO QAM pantoprazole 40 mg tablet,delayed release (Protonix) 40 mg PO QAM ferrous fumarate-vitamin C 200 mg (66 mg iron)-125 mg tablet 1 tab PO QAM glipizide 5 mg tablet 5 mg PO QAM 08/15/23 [History Confirmed 06/28/24] levothyroxine 150 mcg tablet 150 mcg PO QAM fluocinonide 0.05 % topical ointment 1 applic topical BID PRN prn 10/30/23 [History Confirmed 06/28/24] methenamine hippurate 1 gram tablet 1 g PO BID oxycodone 5 mg tablet 5 mg PO Q6 PRN pain bismuth xrhv-[id number]-UmAp-resor rectal suppository 1 supp [place] HS docusate sodium 100 mg capsule (Stool Softener) 100 mg PO BID Continue as directed methenamine hippurate 1 gram tablet 1 g PO BID STOP taking 24 hours before surgery fluocinonide 0.05 % topical ointment 1 applic topical BID PRN DO NOT take the morning of surgery cholecalciferol (vitamin D3) 25 mcg (1,000 unit) capsule (Vitamin D3) 1,000 unit PO QAM metformin 500 mg tablet,extended release 24 hr 1,000 mg PO BID cyanocobalamin (vitamin B-12) 1,000 mcg capsule 1,000 mcg PO QAM ferrous fumarate-vitamin C 200 mg (66 mg iron)-125 mg tablet 1 tab PO QAM glipizide 5 mg tablet 5 mg PO QAM docusate sodium 100 mg capsule (Stool Softener) 100 mg PO BID Take morning of surgery With a small sip of water, OTHERWISE NOTHING TO EAT OR DRINK AFTER MIDNIGHT: metoprolol succinate 50 mg tablet,extended release 24 hr 50 mg PO BID pantoprazole 40 mg tablet,delayed release (Protonix) 40 mg PO QAM levothyroxine 150 mcg tablet 150 mcg PO QAM oxycodone 5 mg tablet 5 mg PO Q6 PRN pain (if needed) Take evening before surgery atorvastatin 40 mg tablet (Lipitor) 40 mg PO HS metformin 500 mg tablet,extended release 24 hr 1,000 mg PO BID metoprolol succinate 50 mg tablet,extended release 24 hr 50 mg PO BID lisinopril 10 mg tablet 10 mg PO HS oxycodone 5 mg tablet 5 mg PO Q6 PRN pain (if needed) bismuth cltc-rfbzxe-UfLa-resor rectal suppository 1 supp IL HS docusate sodium 100 mg capsule (Stool Softener) 100 mg PO BID Other Notes If you have any questions please call us at [phone] or [phone] or [phone] or [phone]
--- NOTE | 2024-07-06 11:38 | Anesthesiology Consultation ---
Date of Service July 06, 2024 Assessment & Plan (1) Encounter for pre-operative examination: Chart Review Chart Review: Acceptable Risk for Surgery (pending cardio clearance and possibly updated ECHO) and Patient seen in Pre Admission Testing - Discussed case with Dr. Marshall- patient with new murmur since at least 10/2023- last ECHO 2021- ideally would like updated ECHO if possible. Please send cardiac optimization form to rate analyst- will need cardio clearance/possibly updated ECHO (patient seen 06/29/24 for cardio clearance- cardio was awaiting preop order) - Check BSG AM DOS Left arm restriction - Patient is NOT an ideal OPJ candidate (currently 23 hour observation) Per PAT appt on 07/06/24, no recent illness/disease exposures, illness related symptoms, or recent illness/disease positive tests. Will leave to surgeon's discretion if preop Covid testing needed Patient seen by cardiology 06/29/24= Patient seen for routine follow up on CAD. Patient feels well/vital signs stable. CADstatus post PCI to LAD in 2017. History of Lexiscan stress test showed small apical septal infarct with mild kelvin-infarct ischemia. Medication management and chest pain resolved. Echo shows EF 55-60%. Continue current medications. No chest pain. Frequent PACsno palpitationsremain on beta-greg. Cardiac risk factorshypertensionBP controlled. Hyperlipidemiaon statin. Diabeteswell-controlled. Consider SGL 2 inhibitor. Patient will be getting surgery on 08/02/24- look for preop - will addend note from today's visit Left Hip Endoscopic Bursectomy 11/27/23= Done under GA with Grade 1 view with MAC #3. ETT #7.0. Atraumatic x 1 History Surgery Operation Date: 08/02/24 09:15 Proposed Procedures p Right Total Knee Arthroplasty - Edwardo Santos, DO Height/Weight Height: 5 ft 5 in Weight: 73 kg Allergies Allergy/AdvReac Type Severity Reaction Status Date / Time dapagliflozin [From [facility]] AdvReac Severe Urinary Verified 06/28/24 08:20 Burning fentanyl AdvReac Severe Hallucinati Verified 06/28/24 08:20 ng morphine AdvReac Severe Migraines/H Verified 06/28/24 08:20 allucinatin g Medications Home Medications Medication Instructions Recorded Confirmed Last Taken atorvastatin 40 mg tablet (Lipitor) 40 mg PO HS 10/05/18 06/28/24 11/26/23 18:00 cholecalciferol (vitamin D3) 25 1,000 unit PO QAM 10/05/18 06/28/24 2 Days Ago mcg (1,000 unit) capsule (Vitamin ~11/25/23 D3) metformin 500 mg tablet,extended 1,000 mg PO BID 10/05/18 06/28/24 11/26/23 18:00 release 24 hr metoprolol succinate 50 mg 50 mg PO BID 10/05/18 06/28/24 11/27/23 06:00 tablet,extended release 24 hr lisinopril 10 mg tablet 10 mg PO HS 05/02/20 06/28/24 11/26/23 18:00 cyanocobalamin (vitamin B-12) 1,000 mcg PO QAM 09/30/22 06/28/24 2 Days Ago 1,000 mcg capsule ~11/25/23 pantoprazole 40 mg tablet,delayed 40 mg PO QAM 09/30/22 06/28/24 11/27/23 06:00 release (Protonix) ferrous fumarate-vitamin C 200 mg 1 tab PO QAM 08/15/23 06/28/24 08/19/23 (66 mg iron)-125 mg tablet glipizide 5 mg tablet 5 mg PO QAM 08/15/23 06/28/24 11/26/23 07:00 levothyroxine 150 mcg tablet 150 mcg PO QAM 08/15/23 06/28/24 11/27/23 06:00 fluocinonide 0.05 % topical 1 applic topical BID PRN prn 10/30/23 06/28/24 2 Days Ago ointment ~11/25/23 methenamine hippurate 1 gram tablet 1 g PO BID 10/30/23 06/28/24 4 Days Ago ~11/23/23 Wheelchair (Manual) #1 ea 11/24/23 Unknown oxycodone 5 mg tablet 5 mg PO Q6 PRN pain #24 tabs 11/28/23 06/28/24 Unknown bismuth ucuz-xvaxwf-YaZy-resor 1 supp ME HS 06/28/24 06/28/24 Unknown rectal suppository docusate sodium 100 mg capsule 100 mg PO BID 06/28/24 06/28/24 Unknown (Stool Softener) Past Medical History Medical History Anemia Chronic back pain Chronic nasal congestion denies change or worsening Coronary artery disease JOSE to pLAD 2016 Diabetes mellitus, type 2 stable Diabetic neuropathy Bilateral feet GERD (gastroesophageal reflux disease) well controlled and stable Hearing loss no hearing aids Hemorrhoids Currently using stool softener and anusol bleeding resolved Hiatal hernia Hx of breast cancer left-2013 - s/p partial mastectomy- s/p 34 session of radiation Hx of myocardial infarction patient states she was unaware of KS, she noticed it in her health records - Dr. Pulido Hx of recurrent urinary tract infection stable, follows with Jovani Layton/Oralia Hyperlipidemia Hypertension Hypomagnesemia On supplement Hypothyroidism IBS (irritable bowel syndrome) Irregular heart beat pt denies PACs per cardio records Limb alert care status left arm Liver cirrhosis Pt unsure - "different doctors tells me different things" Neurodermatitis right wrist, applying ointment as advised per pt Osteoarthritis Pancreatic cyst Under observation Vertigo "When I am laying down and its when I get up, I have to go slow and take a moment" Exercise / Class Metabolic Activity III < 4 Walking/Shop/Light housework (no chest pain or SOB with flat surface ambulation ) Past Family History Family History Mother Diabetes mellitus, type 2 Other No family history of adverse response to anesthesia Past Surgical History Surgical History History of cardiac cath ~, [facility] x1 stent - now follows Dr. Pulido History of carpal tunnel release right History of cataract surgery Bilateral History of colonoscopy History of ERCP History of esophagogastroduodenoscopy (EGD) History of heart artery stent one stent 2016 or 2018 - [facility]; used to f/u dr elizabeth - Now follows Dr Pulido/Oralia History of hip surgery (11/2023) p Left Hip Endoscopic Bursectomy(Left) - Sherman Rodas MD s Endoscopic Gluteal Repair with Allograft Augmentation(Left) - Sherman hills MD History of lumbar fusion History of open reduction and internal fixation (ORIF) procedure right leg ORIF History of total hysterectomy with bilateral salpingo-oophorectomy (BSO) Hx laparoscopic cholecystectomy Hx of arthroscopy of shoulder left Hx of eye surgery Left Eye "I had a laser surgery in the and it left me partially blind" Hx of hernia repair umbilical x2 Hx of partial mastectomy left breast S/P epidural steroid injection also-09/23/22, cooled radio freq. denervation at [facility] Past Anesthesia History No Hx of Anesthesia Complications and No Family Hx of Anesthesia Complications History of PONV No Hx of PONV and No Hx of Motion Sickness Social History Smoking Status: Never smoker Do You Dip or Chew Tobacco: No Hx Alcohol Use: No Hx Substance Use: No substance use type: does not use Review of Systems Patient denies chest pain, shortness of breath at rest, cough, wheezing, palpitations. No hx of seizures, stroke, apnea/snoring. No hx of blood clots or blood transfusions Physical Exam Vital Signs VITALS BP 131/73 P 72 TEMP 98.0 SP02 94% RESP 16 Constitutional no acute distress ENMT Mouth: no TMJ clicking Thyromental Distance: > or= 3.5 Finger Breadths (3.5) Mallampati Class: III Full dentures on top and bottom Neck + limited neck extension (mild) Respiratory normal respiratory effort; no respiratory distress Auscultation: lungs clear to auscultation bilaterally; no wheezes Cardiovascular Rate/Rhythm: regular rate and regular rhythm Heart Sounds: + murmur (II/ murmur) Vessels: no carotid bruit Musculoskeletal Spine: no pain with cervical ROM Extremities: extremities normal to inspection Psychiatric Orientation: alert Lab Results Anesthesia Preop Results Results Anesthesia Widget: WBC 7.94 K/ul (4.8-10.8) 07/06/24 Hgb 11.7 g/dl (12.0-16.0) L 07/06/24 Hct 35.5 % (37.0-47.0) L 07/06/24 Plt 244 K/uL (130-400) 07/06/24 Na 138 mmol/L (136-145) 07/06/24 K 4.2 mmol/L (3.5-5.1) 07/06/24 Cl 103 mmol/L (98-107) 07/06/24 CO2 25 mmol/L (21-32) 07/06/24 BUN 16 mg/dl (6-23) 07/06/24 Creat 0.73 mg/dl (0.6-1.2) 07/06/24 Glucose Level 147 mg/dl (70-99(Fasting)) H 07/06/24 PT 11.6 Seconds (9.0-12.0) 07/06/24 PTT 27 Seconds (21-31) 07/06/24 INR 1.1 (0.9-1.1) 07/06/24 HA1c 6.5 % (4.5-5.6) H 07/06/24 Blood Type O Positive 07/06/24 Antibody Screen NEGATIVE 07/06/24 Testing Laboratory Results 07/06/24= AST: 22 ALT: 11 ALK PHOS: 70 Electrocardiogram Date: 06/29/24 SR with frequent PACs (#PACs= 2) at 81bpm Voltage criteria for LVH- voltage criteria without ST/T abnormality may be normal Chest X-Ray Date: 07/06/24 FINDINGS: Posterior lumbar fixation hardware is seen. The cardiomediastinal silhouette is normal. The lungs are clear. No evidence of pleural effusion or pneumothorax. IMPRESSION: No acute chest disease. Echocardiogram Date: 01/30/22 EF 55-60% Normal Lv wall motion Severely dilated LA Mildly dilated RA Severely calcified mitral valve, moderately thickened leaflets; no evidence of stenosis Aortic valve thickening, consistent with sclerosis; no evidence of stenosis Aortic root is mildly dilated at 37 mm Stress Test Date: 02/11/23 Pharmacologic MPHR 63% Prior small apical septal infarction with mild kelvin-infarct ischemia EKG not indicative of ischemia No transient ischemic dilatation EF 74% Lexiscan stress EKG is not indicative of ischemia
[~2024-08-02 08:09] MED LIST changes: +ROPIVACAINE 0.5% 5 MG/ML 30 ML VIAL ONE
[2024-08-02] MEDS ORDERED: PHENYLEPHRINE 100MCG/ML 5ML SYR ONE (08:59)
[2024-08-02] MEDS ORDERED: MIDAZOLAM HCL 1 MG/ML 2ML VIAL ONE (08:59)
[2024-08-02] MEDS ORDERED: PROPOFOL IV EMULSION 10 MG/ML 20 ML VIAL IV ONE (08:59)
--- NOTE | 2024-08-02 09:30 | History & Physical Bridge Note ---
Date of Service August 02, 2024 History & Physical Bridge Note I have examined the patient, reviewed the History & Physical and in the interval since the performance of the History & Physical I have noted the following changes of clinical significance: no changes noted
[2024-08-02] MEDS: LR 500ML BOLUS, THEN 15ML/HR IV SCH (09:43)
[2024-08-02] MEDS: FAMOTIDINE 20 MG TAB PO SCH (09:44)
[2024-08-02] MEDS: dexAMETHasone**PF** 10 MG/ML VIAL IV SCH (09:44)
[2024-08-02] MEDS: GABAPENTIN 300 MG CAP PO SCH (09:44)
[2024-08-02] MEDS: LR 60ML/HR IV SCH (09:44)
[2024-08-02] MEDS: ACETAMINOPHEN 500 MG TAB PO SCH (09:44)
[2024-08-02] MEDS ORDERED: ONDANSETRON INJ 2 MG/ML 2 ML VIAL IV PRN ×2 (09:57→12:49)
[2024-08-02] MEDS ORDERED: ePHEDrine sulfate 50 MG/ML AMP IV PRN (09:57)
[2024-08-02] MEDS ORDERED: ATROPINE SULFATE 0.1 MG/ML 10ML SYR IV PRN (09:57)
[2024-08-02] MEDS: TRANEXAMIC ACID 1,000 MG **IV Pre-op IV SCH (10:12)
[2024-08-02] MEDS: ceFAZolin 2000MG 2,000 MG/15 ML SYR IV SCH (10:26)
[2024-08-02] MEDS ORDERED: ePHEDrine sulfate 50 MG/ML AMP ONE (10:42)
[2024-08-02] MEDS: ORTHO JOINT ANESTHETIC ONE (11:00)
[2024-08-02] MEDS: TRANEXAMIC ACID 1,000 MG **IV Intra-op IV SCH (11:30)
[2024-08-02] MEDS: ROPIV 0.5% 246mg, Ketorolac 30mg, EPINEPHrine 0.5mg in NSS INFIL SCH (11:34)
--- NOTE | 2024-08-02 11:48 | Operative Report ---
PG Post Operative Report Pre & Post Diagnosis Operation Date: 08/02/24 10:00 Pre-Op Diagnosis: Osteoarthritis of Right knee Post-Op Diagnosis: Osteoarthritis of Right knee I identified the patient and participated in the time-out.: Yes Procedure Operation Date: 08/02/24 10:00 Actual Procedures p Right Total Knee Arthroplasty(Right) - Edwardo Santos DO Surgeon Edwardo Santos DO Energy Conservation Technician None Estimated Blood Loss 30 Findings Consistent with Post-Op Diagnosis Specimens Right femoral and tibial bone Description of Procedure Implants used: I used a Kathy Persona total knee arthroplasty system with a size 7 standard PS femur, D tibia, 31 oval patella, and a size 10 CPS polyethylene bearing. All components were cemented in place with Biomet cement. Micaela arrived [facility] for the above procedure. She was seen in the preoperative holding area and the operative extremity was identified and signed. She was given a preoperative antibiotic, TXA, a spinal anesthetic and an adductor nerve block. She was taken back to the operating room and laid on the table in supine position. She was given basic sedation. The operative knee was then prepped and draped in sterile fashion. A timeout was done, and the patient and the operative extremity was properly identified. A midline incision was made directly over the patella. Dissection was taken down to the extensor mechanism. A subvastus arthrotomy was used. The medial retinaculum was released and the fat pad was mostly excised. The knee was flexed and the ACL, PCL, and meniscus were removed. A drill was sent down the center of the femoral canal followed by an intramedullary harvey. Off that harvey a distal femoral cutting block was placed. 9 mm was resected off the distal femur at 5 of valgus. A posterior referencing AP sizing guide was then placed on the distal femur. The femur measured to be a size 7. 2 drill holes were placed in 3 of external rotation. A 4-in-1 cutting block was then impacted into place. Anterior, posterior, and chamfer cuts were then made. The proximal tibia was then exposed. An external tibial alignment guide was placed. A tibial cut guide was then anchored in place and the proximal tibia was then resected. The posterior aspect of the knee was then opened up and any additional meniscus fragments and osteophytes were removed. The tibia measured to be a size D. The tibial plate was then placed in the appropriate rotation and the tibia was drilled and punched. Trial components were then placed. I used a size 10 CPS polyethylene insert. The knee was brought through a full range of motion and felt to be stable. The peg holes for the femoral component were then drilled. The patella was then everted and 9 mm was resected off the posterior aspect of the patella. The patella measured to be a size 31 oval. 3 peg holes were then drilled. A trial patella was placed. The knee was once again brought through a full range of motion and felt to be stable. Trial components were then removed. The surrounding soft tissues were injected with 100 cc of an orthopedic pain control cocktail. All components were then cemented into place with Biomet cement. The final polyethylene insert was then snapped into place. Once cement was dry the tourniquet was deflated. Hemostasis was obtained. A dilute betadyne lavage was then done for 3 minutes. The joint was then irrigated with normal saline solution. The subvastus arthrotomy was then closed with #1 Vicryl suture. The skin was closed with 2-0 Vicryl, 3-0V lock suture, and kimberlee. A soft compressive dressing was placed. She was then transferred to a hospital bed and taken to the postanesthesia care unit in stable condition. She tolerated the procedure well. I attest to the content of the Intraoperative Record and any orders documented therein. Any exceptions are noted below.
--- NOTE | 2024-08-02 12:30 | XRay Report ---
EXAM: Radiographs of the Right Knee 2 Views INDICATION: Postoperative arthroplasty. TECHNIQUE: Frontal and lateral views of the right knee. COMPARISON: No relevant prior studies available. FINDINGS: Bones/joints: Arthroplasty components well-seated and intact. No fracture, subluxation or dislocation. The proximal end of the medial femoral shaft plate well-seated. Soft tissues: Expected periarticular soft tissue swelling and gas noted. IMPRESSION: Satisfactory appearance of total knee arthroplasty. ACT 112: Negative or not required by law. Electronically signed by Aubrie Adrian 08-02-2024 12:29 PM
[2024-08-02] MEDS ORDERED: HYDROmorphone INJ 0.5 MG/0.5 ML SYR IV PRN (12:49)
[2024-08-02] MEDS ORDERED: NALOXONE HCL 0.4 MG/1 ML VIAL/CARP IV PRN (12:49)
[2024-08-02] MEDS ORDERED: MAGNESIUM HYDROXIDE SUSP 30 ML UDC PO PRN (12:49)
[2024-08-02] MEDS ORDERED: bisacodyL 10 MG SUPP PR PRN (12:49)
[2024-08-02] MEDS ORDERED: oxyCODONE HCL IR 5 MG TAB (IMMEDIATE RELEASE) PO PRN (12:49)
[2024-08-02] MEDS ORDERED: FLUOCINONIDE 0.05% OINT 15 GM TUBE EXT PRN (12:49)
[2024-08-02] MEDS ORDERED: METOCLOPRAMIDE HCL INJ 5 MG/ML 2 ML VIAL IV PRN (12:49)
--- NOTE | 2024-08-02 14:25 | Anesthesiology Progress Note ---
Date of Service August 02, 2024 Anesthesia Post Procedure Vital Signs Vital Signs: Temp Pulse Pulse Resp BP Pulse Ox O2 Del Method 08/02/24 13:42 36.4 C L 70 16 123/71 93 Room Air 08/02/24 13:10 36.3 C L 73 14 131/44 L 94 Room Air 08/02/24 12:40 36.4 C L 93 H 14 146/79 H 94 Room Air 08/02/24 12:20 36.3 C L 75 17 129/67 93 Room Air 08/02/24 12:10 77 19 119/69 93 Room Air 08/02/24 12:00 76 20 121/65 98 Oxymask 08/02/24 11:53 36.1 C L 76 19 113/64 92 Oxymask 08/02/24 09:20 36.9 C 72 18 148/90 H 95 Room Air O2 Flow Rate 08/02/24 13:42 08/02/24 13:10 08/02/24 12:40 08/02/24 12:20 08/02/24 12:10 08/02/24 12:00 8 08/02/24 11:53 8 08/02/24 09:20 Pain Intensity Right Knee: Pain Intensity: 0 Transfer of Care Handoff Completed per policy Notes Mental Status: alert / awake / arousable and participated in evaluation Nausea / Vomiting: adequately controlled Pain: adequately controlled Airway Patency, RR, SpO2: stable & adequate BP & HR: stable & adequate Hydration State: stable & adequate Neuraxial Anesthesia: was administered Anesthetic Complications: no major complications apparent and Pt Satisfied with anesthetic care
[2024-08-02] MEDS: KETOROLAC TROMETHAMINE 15 MG/ML VIAL IV SCH (14:37)
[2024-08-02] MEDS ORDERED: Nursing to Pharmacy Communication SCH (16:00)
[2024-08-02] MEDS: ceFAZolin 1000MG 1,000 MG/7.5 ML SYR IV SCH (17:36)
[2024-08-02] MEDS: DOCUSATE SODIUM 100 MG CAP PO SCH (20:57)
[2024-08-02] MEDS: SENNA 8.6 MG TAB PO SCH (20:57)
[2024-08-02] MEDS: lisinopril 10 MG TAB PO SCH (20:57)
[2024-08-02] MEDS: METOPROLOL SUCC 50MG EXT REL TAB PO SCH (20:58)
[2024-08-02] MEDS: ATORVASTATIN 40 MG TAB PO SCH (20:58)
[2024-08-02] MEDS: metFORMIN HCL ER 500 MG TABCR PO SCH (20:58)
[2024-08-02] MEDS ORDERED: DOCUSATE SODIUM 100 MG CAP PO SCH (21:00)
[2024-08-02] MEDS: ASPIRIN 81 MG ECTAB PO SCH (21:45)
[2024-08-03] MEDS: LEVOTHYROXINE SODIUM 150 MCG TABLET PO SCH (06:01)
[2024-08-03] MEDS: glipiZIDE 5 MG TAB PO SCH (06:06)
[2024-08-03 07:08] VITALS: BP 121/65; PULSE 80; RESP 16; TEMP 97.7; O2SAT 92
[2024-08-03] MEDS: CHOLECALCIFEROL 25 MCG (1000 UNITS) TAB PO SCH (07:30)
[2024-08-03] MEDS: PANTOprazole 40 MG TAB PO SCH (07:30)
[2024-08-03] MEDS: CYANOCOBALAMIN (B-12) 500 MCG TABLET PO SCH (07:31)
[2024-08-03] MEDS: FERROUS SULFATE 325 MG TAB PO SCH (07:31)
[2024-08-03] MEDS: dexAMETHasone 4 MG TAB PO SCH (07:31)
[2024-08-03] MEDS: ASCORBIC ACID 500 MG TAB PO SCH (07:32)
[2024-08-03] MEDS: MULTIVITAMIN TAB PO SCH (07:32)
--- NOTE | 2024-08-03 07:49 | Orthopedic Progress Note ---
Date of Service August 03, 2024 Assessment & Plan (1) Status post right knee replacement: Overall she is doing fairly well. She is not having much pain in the right knee. She will be seen by physical therapy today for ambulation and range of motion exercises. The nursing staff can change her dressing after physical therapy. She is on aspirin for DVT prophylaxis. She can be discharged to home later today. She will follow-up orthopedics in 2 weeks. Sorin Hinojosa was seen and examined at bedside this morning. Overall she is doing fairly well. She is not having too much pain in the right knee. She has been up and ambulating. She has no complaints.. Review of Systems All systems reviewed & are unremarkable except as noted in HPI & below. Physical Exam On physical exam of the right knee, the dressing is clean and dry. Her leg is out full extension. She has active dorsiflexion plantarflexion of her right ankle.. Results & Data Results & Data Laboratory Results . Diagnostic Findings Postoperative x-rays of the right knee show the prosthesis to be in anatomic alignment without any evidence of fracture complication, or loosening.. PG Care Time/CCT Total # of Minutes Spent Total Time Spent with Patient: Total time spent is greater than 50% in coordination of care (as documented) at patient's floor/unit and/or counseling patient: Coding Level of Care Code 46943 Post Operative Follow-Up Diagnoses Status post right knee replacement Z96.651
--- NOTE | 2024-08-03 07:51 | Discharge Summary ---
Date of Service August 03, 2024 Principal Diagnosis Same as "Discharge Diagnosis" noted below under Discharge Instructions. Discharge Exam On physical exam of the right knee, the dressing is clean and dry. Her leg is out full extension. She has active dorsiflexion plantarflexion of her right ankle.. Discharge Data Procedures Performed Operation Date: 08/02/24 10:00 Actual Procedures p Right Total Knee Arthroplasty(Right) - Edwardo Santos DO Ordered Studies 08/02/24 05:00 US - OR guided needle placemen Routine Hospital Course (1) Status post right knee replacement: On August 02, 2024 Micaela arrived at [facility] and underwent a right knee replacement meant without complication. She had a spinal anesthetic. Postoperatively she was started on aspirin for DVT prophylaxis and transferred to the general orthopedic floors. Her hospital course is uneventful. On postop day #1, her vital signs were stable and her pain was well-controlled. She was able to participate well with physical therapy doing ambulation and range of motion exercises. She was then discharged to home. She will follow-up with orthopedics in 2 weeks. PG Care Time/CCT Total # of Minutes Spent Total Time Spent with Patient: Total time spent is greater than 50% in coordination of care (as documented) at patient's floor/unit and/or counseling patient: Discharge Plan Discharge Items Patient Disposition: Home - Self-Care Reason For Visit: RIGHT KNEE REPLACEMENT Discharge Diagnosis: Right knee replacement Activity: Per Instructions section Non-emergency contact: Surgeon Call non-emergency contact if: your wound has increased redness and your wound has increased drainage Follow-up/Referrals: Eloy Dickey [Primary Care Provider] - Diet: Regular Addtl Attending Provider Instructions: Activity and Therapy Recommendations: * If you are using [facility] then therapy will be provided at your home until they feel you have accomplished all of your goals. * If you are using [facility] then Physical Therapy will be provided until they feel you are ready to start Outpatient Physical Therapy. * If you are not using home therapy then Outpatient Physical Therapy should start about 3-5 days from your day of surgery. Therapy will last about 6-10 weeks * It is important not to put a pillow under your knee when you are relaxing or sleeping. It is just as important to make sure you are getting your knee perfectly straight as it is to regain your knee bend. * You were shown a series of exercises in the hospital. Do these exercises three times each day including the exercises you were shown in physical therapy. * Get up and walk several times each day. For the first four weeks, try not to stand or walk for more than one hour at a time. If you do stand or walk for more than one hour, you will not hurt anything, but your leg will likely swell. * As you feel comfortable, you may change from the walker or crutches to a cane and then to independent walking. Medications: * Narcotic You will likely be sent home from the hospital with a prescription for the narcotic pain medication that worked best throughout your stay. * Cefadroxil -take the antibiotic twice a day for 10 days to help prevent infection. * Aspirin Most patients will be required to take Aspirin 81mg twice a day for 6 weeks after surgery. This is obtained [id number] and a prescription is not necessary. * Other medications may be prescribed for specific circumstances. If you have any questions, please call the office at . * Resume previous home medications unless otherwise instructed TEDs/Elastic Stockings: The white elastic stockings help limit swelling and prevent blood clots from forming in your legs.~ The more you wear them, the more they work. Wear them for six weeks. Dressing Care: The dressing can be changed after physical therapy on postop day #1. Daily dry dressing changes for a few days, especially if the incision is still draining some. If the incision is not draining then you may leave the kimberlee open to air. If there is a little bit of drainage or if the kimberlee are getting stuck on your clothing then cover the incision with a dry dressing. The kimberlee will be removed at your 2 week follow-up appointment. Showering: You may shower 5 days from the day of surgery as long as the incision is no longer draining. You may shower with the kimberlee exposed. Let soapy water run over the kimberlee and pat them dry. Do not scrub or soak the incision. Diet: You may resume your previous diet. Things To Watch For: * Drainage from the incision site that occurs more than one week after your surgery. * Increased redness at the incision site. * Fever above 102 degrees Fahrenheit. * Unusual chest pain or shortness of breath. * Call [facility] at with any of the above problems Follow-Up Visit: Follow-up with Dr. Santos's office 2-3 weeks after your day of surgery. We will remove your kimberlee and answer any questions. If you have any additional questions or concerns, Dr Santos is usually in the office at the same time and will be available An appointment was probably scheduled when you signed-up for surgery in the office. If you have any questions call Office Instructions: More detailed instructions as well as Frequently Asked Questions were provided in a folder by our office when you signed-up for surgery. Please review these instructions when you get home. If you have any further questions or concerns, please feel free to call the office at [phone] Pending Studies at Discharge: No Stand-Alone Forms: My [facility] Medications and DC Order Prescriptions: New cefadroxil 500 mg capsule 500 mg PO BID 10 Days Qty: 20 0RF aspirin 81 mg Tablet,Delayed Release (Dr/Ec) 81 mg PO BID 42 Days Qty: 84 0RF Continued (DME) Wheelchair (Manual) Device See Rx Instructions .MEDSUPPLY Qty: 1 0RF Rx Instructions: As directed lisinopril 10 mg Tablet 10 mg PO HS atorvastatin [Lipitor] 40 mg Tablet 40 mg PO HS metoprolol succinate 50 mg Tablet Extended Release 24 Hr 50 mg PO BID metformin 500 mg Tablet Extended Release 24 Hr 1,000 mg PO BID cholecalciferol (vitamin D3) [Vitamin D3] 1,000 unit Capsule 1,000 unit PO QAM ferrous fumarate-vitamin C 200 mg (66 mg iron)-125 mg Tablet 1 tab PO QAM levothyroxine 150 mcg Tablet 150 mcg PO QAM glipizide 5 mg Tablet 5 mg PO QAM pantoprazole [Protonix] 40 mg tablet,delayed release (DR/EC) 40 mg PO QAM cyanocobalamin (vitamin B-12) 1,000 mcg capsule 1,000 mcg PO QAM methenamine hippurate 1 gram Tablet 1 g PO BID fluocinonide 0.05 % Ointment 1 applic TOPICAL BID PRN (Reason: prn) Patient Comments: apply to wrist as needed docusate sodium [Stool Softener] 100 mg Capsule 100 mg PO BID Anusol Suppository 1 supp MD HS oxycodone 5 mg Tablet 5 mg PO Q6 PRN (Reason: pain) Qty: 30 0RF Discharge Orders: Discharge Order (Routine); Ordered 08/03/24 Ordered By: Edwardo Santos Admission Data Admit Date/Time: 08/02/24 11:52 Attending Provider: Edwardo Santos Admit Provider: Edwardo Santos Primary Care Provider: Eloy Dickey
[2024-08-03] MEDS ORDERED: NON-FORMULARY MEDICATION (Ferrous Fumarate-Vitamin C 200 mg (66 mg iron)-125 mg Tablet) PO SCH (09:00)
[2024-08-03] MEDS: oxyCODONE HCL IR 5 MG TAB (IMMEDIATE RELEASE) PO PRN (11:27)
== END 2024-08-03 12:13 | disposition home or self-care (01) ==
LOC: 3W 08:09 → ASU 08:09